=== PATIENT | female | born 1965 | race Caucasian/White ===

== ENCOUNTER 2018-04-11 14:35 | Inpatient (IN) ==
[2018-04-11] MEDS ORDERED: Haloperidol Lactate 5 MG/ML VIAL IM ONE (15:36)
--- NOTE | 2018-04-11 15:48 | Emergency Department Note ---
Disposition Clinical Impression: Elevated CK, Rett syndrome, Dehydration, Lactic acidosis Disposition: Admitted As Inpatient Condition: Fair Forms: ED Satisfaction Letter, Work/School Release Time of Disposition: 17:41 General Adult HPI - General Chief complaint: ED General Medical Stated complaint: General Time Seen by Provider: 04/11/18 15:03 Source: family Limitations: altered mental status Nursing Notes Reviewed: Yes Vital Signs Reviewed: Yes - History of Present Illness HPI Narrative: Patient presents to the ED with multiple complaints. 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 She had a recent dental surgery and "has not been the same since". Family states that she normally paces around . However, she has been doing this more than usual. She has not been sleeping well, averaging about 3 hours a night. Family states that they have to stay up with her because she is unable to take care of herself on her own. She is nonverbal at baseline. Does not appear to be confused. They deny any fever. She has been eating normally. She was constipated over the last week, but they gave her some medication yesterday and she had a large bowel movement this morning. No chest pain or shortness of breath. She does not exhibit any signs of pain, so they are unable to assess if she is hurting. They do think she may have a problem with her hips because she does not want to lay down at night and does not want to get up in bed like she has previously. No known falls. No rashes. Pain Scale: 0 - Related Data Home Medications Medication Instructions Recorded Confirmed Meloxicam [Mobic] 7.5 mg PO DAILY 04/11/18 04/11/18 Allergies Allergy/AdvReac Type Severity Reaction Status Date / Time No Known Allergies Allergy Verified 04/11/18 15:35 Review of Systems: As reviewed in the HPI. All other systems reviewed are negative or normal. Past Medical History - Past Medical History Attestation: Yes The following information was validated with the patient. Source: patient Medical history: Reports: other - Social History Smoking Status: Never smoker Smokeless Tobacco Status: No Alcohol use: Reports: none Drug use: Reports: none Physical Exam CONSTITUTIONAL: [chronically ill appearing, alert and in no acute distress, pacing around the room] EYES: [EOMI, clear conjunctiva] HENT: [Normocephalic, atraumatic, moist mucus membranes, normal oropharynx] NECK: [normal inspection, no obvious swelling, flexed and side bent to the right] PULMONARY: [normal lung sounds bilaterally, normal chest rise and fall, no respiratory distress or stridor, difficult to fully assess due to pacing CARDIOVASCULAR: [regular rate, regular rhythm, normal heart sounds, no murmurs, distal extremities are warm and well perfused] GASTROINSTESTINAL: [soft, non-tender, no guarding, no rebound, normal bowel sounds] GENITOURINARY/RECTAL: [deferred] NEUROLOGIC: [Alert, oriented to baseline but is non-verbal so unable to fully asses, moves all extremities, normal gait but family states is slightly shuffling] EXTREMITIES: [Normal inspection, full ROM, no tenderness, no pedal edema] MUSCULOSKELETAL: [no gross deformities, atraumatic] SKIN: [No cyanosis, no diaphoresis, normal color, warm, no rash] PSYCHIATRIC: [normal mood and affect] - General Limitations: altered mental status Course Course Narrative: Patient has a very mild leukocytosis, but has an elevated lactic acid and e levated CK. Normal renal function. Does have some ketones in her urine. Admitted to the hospitalist service for IV fluids. Did request we add on blood cultures. However, no obvious source of infection has been found. Family is agreeable to plan Vital Signs Temperature 98.9 F 04/11/18 14:52 Respiratory Rate 20 04/11/18 14:52 Blood Pressure 139/78 04/11/18 14:52 Temperature 98.9 F 04/11/18 15:23 Pulse Rate 0 04/11/18 15:23 Respiratory Rate 20 04/11/18 15:23 Blood Pressure 139/78 04/11/18 15:23 O2 Sat by Pulse Oximetry 0 04/11/18 15:23 Oxygen Delivery Oxygen Delivery Room Air Medical Decision Making - Medical Records Medical records reviewed: Yes I reviewed the patient's medical records. - Lab Data Lab results reviewed: Yes I reviewed the patient's lab results. Result diagrams: 04/11/18 16:39 04/11/18 16:39 Lab Results 04/11/18 04/11/18 04/11/18 Range/Units 16:39 16:39 16:46 WBC 12.1 H (4.3-11.1) K/mcL RBC 4.65 (3.82-4.97) M/mcL Hgb 14.0 (11.5-15.4) g/dL Hct 43.9 (35.3-44.9) % MCV 94.4 (83.0-100.0) fL MCH 30.1 (28.0-33.3) pg MCHC 31.9 (31.6-35.5) g/dL RDW 14.2 (11.5-14.5) % Plt Count 263 (140-400) K/mcL MPV 9.8 (9.4-12.4) fL Immature Gran % 0.6 (0-4) % Seg Neutrophils % 77.1 % Lymphocytes % 12.5 % Monocytes % 8.0 % Eosinophils % 1.2 % Basophils % 0.6 % Neutrophils # 9.3 H (1.6-8.9) K/mcL Lymphocytes # 1.5 (0.6-4.6) K/mcL Monocytes # 1.0 (0.0-1.3) K/mcL Eosinophils # 0.2 (0.0-0.6) K/mcL Basophils # 0.1 (0.0-0.2) K/mcL Sodium 141 (136-145) mEq/L Potassium 3.8 (3.5-5.1) mEq/L Chloride 104 (98-107) mEq/L Carbon Dioxide 25 (23-29) mEq/L BUN 29 H (6-20) mg/dL Creatinine 0.81 (0.60-1.20) mg/dL Est GFR ( Amer) > 60 (> 60) Est GFR (Non-Af Amer) > 60 (> 60) BUN/Creatinine Ratio 36 H (6-26) Glucose 110 H (70-105) mg/dL Calculated Osmolality 298 (280-300) Lactic Acid 3.2 H (0.5-2.2) mmol/L Calcium 9.4 (8.6-10.3) mg/dL Total Bilirubin 0.7 (0.3-1.0) mg/dL AST 48 H (13-39) Units/L ALT 32 (7-52) Units/L Alkaline Phosphatase 142 H (34-104) Units/L Creatine Kinase 754 H (30-223) Units/L Serum Total Protein 7.7 (6.4-8.9) g/dL Albumin 4.3 (3.5-5.7) g/dL Globulin 3.4 (2.4-3.5) g/dL Albumin/Globulin Ratio 1.3 (1.1-2.2) Urine Color (Yellow) Urine Clarity (Clear) Urine pH (5.0-8.0) pH Units Ur Specific [place] (1.010-1.025) Urine Protein (Neg-Trace) mg/dL Urine Glucose (UA) (Normal) mg/dL Urine Ketones (Negative) mg/dL Urine Blood (Negative) Urine Nitrite (Negative) Urine Bilirubin (Negative) Urine Urobilinogen (Normal) mg/dL Ur Leukocyte Esterase (Negative) Urine Microscopic RBC (0-3) per hpf Urine Microscopic WBC (0-3) per hpf Ur Squamous Epith Cells (None-Few) per lpf Urine Bacteria (None-Few) per hpf Hyaline Casts (None-Few) per lpf Ur Culture Indicated? (NO) 04/11/18 Range/Units 16:51 WBC (4.3-11.1) K/mcL RBC (3.82-4.97) M/mcL Hgb (11.5-15.4) g/dL Hct (35.3-44.9) % MCV (83.0-100.0) fL MCH (28.0-33.3) pg MCHC (31.6-35.5) g/dL RDW (11.5-14.5) % Plt Count (140-400) K/mcL MPV (9.4-12.4) fL Immature Gran % (0-4) % Seg Neutrophils % % Lymphocytes % % Monocytes % % Eosinophils % % Basophils % % Neutrophils # (1.6-8.9) K/mcL Lymphocytes # (0.6-4.6) K/mcL Monocytes # (0.0-1.3) K/mcL Eosinophils # (0.0-0.6) K/mcL Basophils # (0.0-0.2) K/mcL Sodium (136-145) mEq/L Potassium (3.5-5.1) mEq/L Chloride (98-107) mEq/L Carbon Dioxide (23-29) mEq/L BUN (6-20) mg/dL Creatinine (0.60-1.20) mg/dL Est GFR ( Amer) (> 60) Est GFR (Non-Af Amer) (> 60) BUN/Creatinine Ratio (6-26) Glucose (70-105) mg/dL Calculated Osmolality (280-300) Lactic Acid (0.5-2.2) mmol/L Calcium (8.6-10.3) mg/dL Total Bilirubin (0.3-1.0) mg/dL AST (13-39) Units/L ALT (7-52) Units/L Alkaline Phosphatase (34-104) Units/L Creatine Kinase (30-223) Units/L Serum Total Protein (6.4-8.9) g/dL Albumin (3.5-5.7) g/dL Globulin (2.4-3.5) g/dL Albumin/Globulin Ratio (1.1-2.2) Urine Color Yellow (Yellow) Urine Clarity Cloudy A (Clear) Urine pH 5.0 (5.0-8.0) pH Units Ur Specific [place] 1.023 (1.010-1.025) Urine Protein Negative (Neg-Trace) mg/dL Urine Glucose (UA) Normal (Normal) mg/dL Urine Ketones 15 H (Negative) mg/dL Urine Blood Small H (Negative) Urine Nitrite Negative (Negative) Urine Bilirubin Small H (Negative) Urine Urobilinogen Normal (Normal) mg/dL Ur Leukocyte Esterase Negative (Negative) Urine Microscopic RBC 3-5 H (0-3) per hpf Urine Microscopic WBC 0-3 (0-3) per hpf Ur Squamous Epith Cells Many H (None-Few) per lpf Urine Bacteria None Seen (None-Few) per hpf Hyaline Casts Few (None-Few) per lpf Ur Culture Indicated? NO (NO) - Radiology Data Radiology results reviewed: Yes I reviewed the patient's radiology results. - EKG Data EKG #1 EKG attestation: Yes I reviewed and interpreted this EKG. EKG results narrative: EKG is severely limited by motion degradation, showing a sinus tach at 125, normal axis, no acute diagnostic ischemic changes. Attestation Statement - Attestation Attestation: I, Ulysses Donaldson, examined this patient and my medical decision-making was reviewed with the [employer]ATE OPERATOR/PA/Advanced Practice Nurse/Resident Physician. I agree with the documented findings, disposition and treatment plan as described except to the extent set forth below. 52-year-old female presents emergency Department for evaluation of altered mental status. Patient has a history of Rett syndrome and is unable to provide a history regarding her case and presentation. Family are present in the emergency department and state that she is at baseline nonverbal and often paces around the room however it has significantly increased and she is unable to sleep at home. Patient had a dental procedure which required intubation and sedation in order to complete the dental care. Patient's symptoms have been present since that time. They deny history of vomiting, diarrhea, rash. We will evaluate for possible infectious etiology of the patient's confusion. Patient will require some sedation in order to obtain labs and urinalysis as she is persistently pacing around the room. Patient was given Haldol and Benadryl emergency department in order to complete the evaluation. Family was comfortable with this plan. Laboratory evaluation pending at this time.
[2018-04-11 16:54] LABS: Basophils # 0.1 K/mcL (0.0-0.2); Basophils % 0.6 %; Eosinophils # 0.2 K/mcL (0.0-0.6); Eosinophils % 1.2 %; Hematocrit 43.9 % (35.3-44.9); Immature Granulocytes % 0.6 % (0-4); Lymphocytes # 1.5 K/mcL (0.6-4.6); Lymphocytes % 12.5 %; Mean Corpuscular HGB Conc 31.9 g/dL (31.6-35.5); Mean Corpuscular Hemoglobin 30.1 pg (28.0-33.3); Mean Corpuscular Volume 94.4 fL (83.0-100.0); Mean Platelet Volume 9.8 fL (9.4-12.4); Neutrophils # 9.3 K/mcL (1.6-8.9); Platelet Count 263 K/mcL (140-400); Red Blood Count 4.65 M/mcL (3.82-4.97); Red Cell Distribution Width 14.2 % (11.5-14.5); Segmented Neutrophils % 77.1 %
[2018-04-11 17:08] LABS: Bilirubin,Urine Small (Negative); Blood,Urine Small (Negative); Clarity,Urine Cloudy (Clear); Color,Urine Yellow (Yellow); Glucose,Urine (UA) Normal (Normal); Ketones,Urine 15 mg/dL (Negative); Leukocyte Esterase,Urine Negative (Negative); Nitrite,Urine Negative (Negative); Protein,Urine Negative (Neg-Trace); Specific Gravity,Urine 1.023 (1.010-1.025); Urobilinogen,Urine Normal (Normal)
[2018-04-11 17:09] LABS: Bacteria,Urine None Seen per hpf (None-Few); Hyaline Casts,Urine Few per lpf (None-Few); Squamous Epithelial Cell,Urine Many per lpf (None-Few); WBC,Urine 0-3 per hpf (0-3)
[2018-04-11 17:13] LABS: Alanine Aminotransferase 32 Units/L (7-52); Albumin 4.3 g/dL (3.5-5.7); Albumin/Globulin Ratio 1.3 (1.1-2.2); Alkaline Phosphatase 142 Units/L (34-104); Aspartate Amino Transferase 48 Units/L (13-39); BUN/Creatinine Ratio 36 (6-26); Bilirubin,Total 0.7 mg/dL (0.3-1.0); Blood Urea Nitrogen 29 mg/dL (6-20); Calcium 9.4 mg/dL (8.6-10.3); Carbon Dioxide 25 mEq/L (23-29); Chloride 104 mEq/L (98-107); Creatine Kinase 754 Units/L (30-223); Globulin 3.4 g/dL (2.4-3.5); Glucose 110 mg/dL (70-105); Osmolality,Calculated 298 (280-300); Potassium 3.8 mEq/L (3.5-5.1); Sodium 141 mEq/L (136-145); Total Protein 7.7 g/dL (6.4-8.9); eGFR For Non-African Americans > 60 (> 60)
--- NOTE | 2018-04-11 18:28 | Internal Med History&Physical ---
<Ava Hernandez - Last Filed: 04/11/18 18:59> Date of Encounter: 04/11/18 Internal Medicine - H&P: [facility] History of present illness: Ms. Kim is a 52 year old female Internal Medicine - H&P: Meds Meloxicam [Mobic] 7.5 mg PO DAILY 04/11/18 [History] Allergy/AdvReac Type Severity Reaction Status Date / Time No Known Allergies Allergy Verified 04/11/18 15:35 All Systems PM: A 10-system review of systems was performed and is negative for pertinent findings except as documented above in the HPI. - Constitutional Vitals: Temp Pulse Resp BP Pulse Ox 98.9 F 94 20 133/86 99 04/11/18 15:23 04/11/18 18:29 04/11/18 18:29 04/11/18 18:29 04/11/18 18:29 Internal Med - H&P Results - Labs CBC & Chem 7: 04/11/18 16:39 04/11/18 16:39 Labs: Short CBC 04/11/18 Range/Units 16:39 WBC 12.1 H (4.3-11.1) K/mcL Hgb 14.0 (11.5-15.4) g/dL Hct 43.9 (35.3-44.9) % Plt Count 263 (140-400) K/mcL Neutrophils # 9.3 H (1.6-8.9) K/mcL BMP 04/11/18 16:39 Sodium 141 Potassium 3.8 Chloride 104 Carbon Dioxide 25 BUN 29 H Creatinine 0.81 Glucose 110 H Calcium 9.4 Liver Function 04/11/18 Range/Units 16:39 Total Bilirubin 0.7 (0.3-1.0) mg/dL AST 48 H (13-39) Units/L ALT 32 (7-52) Units/L Alkaline Phosphatase 142 H (34-104) Units/L Albumin 4.3 (3.5-5.7) g/dL Urine 04/11/18 Range/Units 16:51 Urine Color Yellow (Yellow) Urine Clarity Cloudy A (Clear) Urine pH 5.0 (5.0-8.0) pH Units Ur Specific [place] 1.023 (1.010-1.025) Urine Protein Negative (Neg-Trace) mg/dL Urine Glucose (UA) Normal (Normal) mg/dL - Impressions ITS Impressions Chest X-Ray 04/11/18 15:24 IMPRESSION: No acute process. D/ / 04/11/2018 16:42:19 Jack Nix MD / guerartdivine Interpreting Provider: Jack Nix MD Pelvis X-Ray 04/11/18 15:24 IMPRESSION: No acute osseous abnormality. D/ / Jack Nix MD / Jack Nix MD Interpreting Provider: Jack Nix MD - Time Spent With Patient Total time spent is greater than 50% in coordination of care (as documented) at patient's floor/unit and/or counseling patient: - Attending Attestation I examined this patient and my medical decision-making was reviewed with the Resident Physician Dr Bright. I agree with the documented findings, disposition and treatment plan as described except to the extent set forth below. Ms Kim has in observation for suspected rhabdomyolysis that is the result of increased activity 2/2 agitation after outpt procedure which is a complication she ahs had in past with her Rett Syndrome She was sedated with haldol in ED and family is at bedside. Only complaint is inreased agitation, pacing constatntly in recent days, not sleeping since dental work with sedation at [facility]. Has done this in past with procedures. Started to notice she was walking like her legs hurt so brought her in. she is non verbal at baseline and otherwise has been in her usual health no hpi or ros can be obtained from patient gen- asleep, appears stated age eyes- pupils equal round cv- reg rate and rhythm, normal s1,s2, no murmurs appreciated, no le edema lungs- ctabl, no wheezing, rhonchi or crackles abd- soft, no apparent tenderness, non distended, + bs neuro- asleep, finally calm, family did not want us to wake elevated CK, suspect rhabdo given recent increased activity- IVFs, serial cks, check mag given leg pain leukocytosis- no infectious source identified at this time, checking bl cxs given her recent dental work, trend wbc, watch for fever rett syndrome- follows with pcp, non verbal at baseline, only home med is meloxicam further diagnoses and plan as documented by resident <Kandis Bright - Last Filed: 04/11/18 19:49> Date of Encounter: 04/11/18 Time of Encounter: 19:19 Internal Medicine - H&P: HPI Chief complaint: dehydration Admitted From: Emergency Dept Plans for Post Hospital Care: Home History of present illness: Ms. Kim is a 52 year old female with past medical history of Rett syndrome, who presented to the emergency department on 04/11/2018 with a chief complaint of "not acting right". Patient's history is obtained per her mother and father, at baseline patient is nonverbal, able to ambulate, however has bilateral weakness in the upper extremities. Per family in the room as well as her feather washer, over the past 2 weeks, patient has been very anxious and agitated, notes that she paces throughout the room, walking in circles for hours at a time, and this is been ongoing for the past week and a half, progressively getting worse, which is very unusual for her. They also note that she is been unable to sleep, possibly getting 3 hours of sleep at a time. They state that this began approximately 2 weeks ago following a dental procedure where she was nasally intubated. They stated that the procedure well, no cough medications are noted. They note that the patient appears more confused, seems to grimace more when going from a standing position and getting onto her bed, which is unusual for her. The patient is able to walk without difficulty. They state that she will point to her legs and hips as though that is where her pain is located. They also note that over the past week, they had to give her Colace as she was not having a bowel movement, did have a large bowel movement this morning. Also states that on Saturday, patient was seen by primary care provider, had slight swelling in the lower extremities, primary care provider placed the p atient on Lasix, and has been taking this daily for the past 5 days, they do note that she has had increased urine output. They deny recent history of fevers, chills, abdominal pain, change in appetite, hematuria, pain with urination, cough, difficulty swallowing or painful swallowing. They deny any recent infections, illness or antibiotic use. Patient does have history of falls in the past, has not had a fall for months per family in the room. No new rashes or bruises that the family is aware of. Patient is primarily cared for by her parents and caregiver. They state that there is always someone who is with her 24 hours a day. They state that she does not take any medications at home, no medical history other than Rett syndrome. They state that she does not follow with these particular specialist, they state that she does go to her primary care provider as needed. On arrival to the emergency department, patient was normotensive, with regular heart rate, and afebrile. Patient's white blood cell count was 12.1, serum creatinine is normal at 0.81, sodium and potassium are within normal limits, creatinine kinase is elevated at 754, lactic acid is elevated at 3.2, urinalysis does show small amount of blood with 3-5 RBCs, no signs of infection. Chest x- ray and pelvic x-ray are negative for acute changes, no signs of cardiopulmonary changes or infection. Patient was started on fluids, and as patient was agitated and combative with staff, Haldol and Benadryl were given to the patient. On admission, patient is lying in bed calmly, family is at bedside. They state that in the past, multiple years ago, she had gallbladder surgery and had a very similar reaction following anesthesia. They state that at that point in time she would walk around for multiple days at a time, however was not this severe. They do state that it took multiple weeks for her to stop pacing in the room. They did not seek medical attention at that time. Past Med Surg Social Fam HX - Past Medical History Source: obtained from family Medical history: other (Rett Syndrome) Additional medical history: Rhetts syndrome, scolliosis - Past Surgical History Additional surgical history: Back sx - Social History Smoking Status: Never smoker Smokeless Tobacco Status: No Alcohol use: none Drug use: none ROS unobtainable: due to mental status All Systems PM: A 10-system review of systems was performed and is negative for pertinent findings except as documented above in the HPI. - Constitutional Vitals: Temp Pulse Resp BP Pulse Ox 98.9 F 99 20 136/81 99 04/11/18 15:23 04/11/18 17:51 04/11/18 17:51 04/11/18 17:51 04/11/18 17:51 General appearance: Present: A&O X 0, no acute distress (Patient currently laying in bed, will make multiple sounds, but with no purpose or intention) Exam: . - Head Head exam: Present: atraumatic, normal inspection, normocephalic - Eye Eye exam: Present: EOMI, normal appearance, PERRL - ENT ENT exam: Present: normal exam (Mucous membranes slightly dry) - Respiratory Respiratory exam: Present: CTAB. Absent: respiratory distress, rhonchi, stridor, wheezes - Cardiovascular Cardiovascular exam: Present: RRR. Absent: gallop, rubs - GI/Abdominal GI/Abdominal exam: Absent: guarding, rebound, tenderness, no peritoneal signs - Extremities Exam Extremities exam: Absent: calf tenderness, normal inspection, pedal edema, tenderness - Neurological Exam Neurological exam: Present: no focal deficits (Patient had been sedated prior to examination, however patient did move her upper and lower extremities while on the bed, no gross deficits able to be appreciated, as patient is uncooperative with exam currently) - Skin Skin exam: Absent: erythema, pallor, rash Internal Med - H&P Results - Labs CBC & Chem 7: 04/11/18 16:39 04/11/18 16:39 Labs: Short CBC 04/11/18 Range/Units 16:39 WBC 12.1 H (4.3-11.1) K/mcL Hgb 14.0 (11.5-15.4) g/dL Hct 43.9 (35.3-44.9) % Plt Count 263 (140-400) K/mcL Neutrophils # 9.3 H (1.6-8.9) K/mcL BMP 04/11/18 16:39 Sodium 141 Potassium 3.8 Chloride 104 Carbon Dioxide 25 BUN 29 H Creatinine 0.81 Glucose 110 H Calcium 9.4 Liver Function 04/11/18 Range/Units 16:39 Total Bilirubin 0.7 (0.3-1.0) mg/dL AST 48 H (13-39) Units/L ALT 32 (7-52) Units/L Alkaline Phosphatase 142 H (34-104) Units/L Albumin 4.3 (3.5-5.7) g/dL Urine 04/11/18 Range/Units 16:51 Urine Color Yellow (Yellow) Urine Clarity Cloudy A (Clear) Urine pH 5.0 (5.0-8.0) pH Units Ur Specific [place] 1.023 (1.010-1.025) Urine Protein Negative (Neg-Trace) mg/dL Urine Glucose (UA) Normal (Normal) mg/dL - Impressions ITS Impressions Chest X-Ray 04/11/18 15:24 IMPRESSION: No acute process. D/ / 04/11/2018 16:42:19 Jack Nix MD / isabelle Interpreting Provider: Jack Nix MD Pelvis X-Ray 04/11/18 15:24 IMPRESSION: No acute osseous abnormality. D/ / Jack Nix MD / Jack Nix MD Interpreting Provider: Jack Nix MD - Assessment and plan (1) Rhabdomyolysis Current Visit: Yes Status: Acute Assessment and plan: Patient presented to the emergency room with history of Rett syndrome, states that her family who are giving history, patient has been pacing for the past 2 weeks, progressively worsening over the past few days. On arrival to the emergency department, patient was normotensive, afebrile with white count of 12.1 Patient found to have elevated CK of 754, serum creatinine is 0.81, urinalysis shows small blood, with 3-5 RBCs, lactic acid elevated at 3.2 Given patient's history recently, with increased activity and constant movement, suspect rhabdomyolysis is secondary to this activity. Urinalysis does not suggest urinary tract infection, chest x-ray is negative for acute cardiopulmonary process, pelvic x-rays negative and appears normal No recent fevers, cough or chills per patient. No recent antibiotic use, falls or trauma Plan We will give her 1 L bolus, and then continue at a rate of 100 mL's per hour continuous We will get a repeat CK, magnesium, lactic acid at 2100 We will reassess CMP and CBC in the morning We will continue to monitor for fevers We will monitor as blood cultures were drawn, continue to follow We will continue to follow serum creatinine Qualifiers: Rhabdomyolysis type: non-traumatic Qualified Code(s): M62.82 - Rhabdo myolysis (2) 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 Assessment and plan: Patient with history of Rett syndrome, appears stable and unchanged per family in the room Primary caregivers are currently her parents as well as a family friend, who provides home health at times Patient on arrival to the emergency department was combative and agitated, was sedated with Haldol and Benadryl On my examination, patient was calm, laying in bed and not combative Plan Sitter was placed at patient's bedside Per family, expectation is that patient could possibly become combative or agitated again when patient wakes up and is no longer sedated Would recommend that if the patient does become combative to try to apply hand mitt so patient is unable to remove IVs, if patient continues to progress, would advocate that patient be given Ativan 1 mg and reassessed (3) Lactic acidosis Current Visit: Yes Status: Acute Assessment and plan: Lactic acid is elevated at 3.2 Plan Continue as stated above We will continue to trend with repeat at 2100 (4) DVT prophylaxis Current Visit: Yes Status: Acute Assessment and plan: Subcutaneous heparin (5) Leucocytosis Current Visit: Yes Status: Acute Assessment and plan: On arrival to the emergency department patient's to BBC was elevated at 12.1 No infectious etiology at this point in time, urinalysis shows no signs of infections, chest x-ray is negative for acute cardiac no pulmonary disease No recent fevers or illness per family in the room Plan continue to monitor blood cultures, have been drawn given recent dental procedure Continue to watch, patient has febrile episode, we will need to reassess Qualifiers: Leukocytosis type: unspecified Qualified Code(s): D72.829 - Elevated white blood cell count, unspecified - Time Spent With Patient Total time spent is greater than 50% in coordination of care (as documented) at patient's floor/unit and/or counseling patient: 25 - 35 minutes
[2018-04-11] MEDS ORDERED: Naloxone 0.4 MG/ML INJ IVP PRN (18:48)
[2018-04-11] MEDS ORDERED: Acetaminophen 325 MG TABLET PO PRN (18:48)
[2018-04-11] MEDS: 0.9 % Sodium Chloride 1,000 ML IVC SCH ×2 (19:37→21:52)
[2018-04-11 21:16] LABS: Magnesium 2.2 mg/dL (1.6-2.6)
[2018-04-11] MEDS: *HR* Heparin 5,000 UNIT/ML VIAL SQ SCH (21:52)
[2018-04-12 04:20] LABS: Basophils % 0.4 %; Eosinophils # 0.1 K/mcL (0.0-0.6); Eosinophils % 1.3 %; Hematocrit 39.4 % (35.3-44.9); Hemoglobin 13.1 g/dL (11.5-15.4); Immature Granulocytes % 0.4 % (0-4); Lymphocytes # 1.1 K/mcL (0.6-4.6); Lymphocytes % 11.6 %; Mean Corpuscular HGB Conc 33.2 g/dL (31.6-35.5); Mean Corpuscular Hemoglobin 30.6 pg (28.0-33.3); Mean Corpuscular Volume 92.1 fL (83.0-100.0); Mean Platelet Volume 9.6 fL (9.4-12.4); Monocytes # 0.7 K/mcL (0.0-1.3); Monocytes % 7.3 %; Neutrophils # 7.2 K/mcL (1.6-8.9); Platelet Count 228 K/mcL (140-400); Red Blood Count 4.28 M/mcL (3.82-4.97); Red Cell Distribution Width 14.4 % (11.5-14.5)
[2018-04-12 04:40] LABS: Alanine Aminotransferase 25 Units/L (7-52); Albumin 3.8 g/dL (3.5-5.7); Albumin/Globulin Ratio 1.4 (1.1-2.2); Alkaline Phosphatase 126 Units/L (34-104); Aspartate Amino Transferase 39 Units/L (13-39); BUN/Creatinine Ratio 46 (6-26); Bilirubin,Total 0.7 mg/dL (0.3-1.0); Blood Urea Nitrogen 25 mg/dL (6-20); Calcium 8.7 mg/dL (8.6-10.3); Carbon Dioxide 20 mEq/L (23-29); Chloride 107 mEq/L (98-107); Globulin 2.8 g/dL (2.4-3.5); Glucose 98 mg/dL (70-105); Osmolality,Calculated 294 (280-300); Potassium 3.4 mEq/L (3.5-5.1); Sodium 140 mEq/L (136-145); Total Protein 6.6 g/dL (6.4-8.9); eGFR For Non-African Americans > 60 (> 60)
[2018-04-12] MEDS: 0.9 % Sodium Chloride 1,000 ML IVC SCH ×3 (06:25→21:55)
[2018-04-12] MEDS: *HR* Heparin 5,000 UNIT/ML VIAL SQ SCH ×3 (06:26→21:52)
[2018-04-12] MEDS ORDERED: Potassium Chloride Elixir 20 MEQ/15 ML UDC PO ONE (11:34)
[2018-04-12] MEDS ORDERED: 0.9 % Sodium Chloride 1,000 ML IVC ONE ×2 (12:17→18:35)
[2018-04-12] MEDS ORDERED: 0.9 % Sodium Chloride 1,000 ML IVC SCH (12:18)
--- NOTE | 2018-04-12 13:30 | Internal Med Progress Note ---
<Priyanka Mandujano - Last Filed: 04/12/18 13:27> Hospitalist Progress Note - Encounter Date of Encounter: 04/12/18 Time of Encounter: 13:27 - Subjective Interval History: 52-year-old female evaluated at bedside. She was laying at the corner of the bed in the position. She is nonverbal, does not answer questions or follow commands. Patient's parents present at bedside. - Exam Vitals: Temp Pulse Resp BP Pulse Ox 98.5 F 103 20 133/75 96 04/12/18 04:15 04/12/18 08:12 04/12/18 08:12 04/12/18 08:12 04/12/18 08:12 Exam: Gen.: patient laying in the bed in the position. She does not follow commands or respond to questions. Mouth, very poor dentition present. Patient did not allow me to open or look inside the mouth. CV: regular rate and rhythm, normal S1, S2, no murmurs, rubs, gallops appreciated. No pedal edema present. Respiratory: clear to auscultation bilaterally, no wheezes, rales, or rhonchi noted. Abdomen: soft, nondistended, nontender, bowel sounds present. 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 Upon arrival, CPK was elevated at 754. Chest x-ray no acute process pelvis x-ray showed no osseous abnormality plan: will give another 1 L bolus today. 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 Patient lives at home with her parents, who are her primary drafter electromechanical. Plan: patient appears very somnolent today. Suspect likely secondary to sedation with Haldol and Benadryl. continue sitter Q2 hour turning (3) Lactic acidosis Current Visit: Yes Status: Resolved Assessment and Plan: Resolved (4) DVT prophylaxis Current Visit: Yes Status: Acute Assessment and Plan: Heparin SQ (5) Leucocytosis Current Visit: Yes Status: Resolved Assessment and Plan: Currently resolved. Continue to monitor. - Time Spent with Patient Total time spent is greater than 50% in coordination of care (as documented) at patient's floor/unit and/or counseling patient: Internal Medicine: Result - Labs CBC & Chem 7: 04/12/18 04:05 04/12/18 04:05 Labs: Short CBC 04/11/18 04/12/18 Range/Units 16:39 04:05 WBC 12.1 H 9.1 (4.3-11.1) K/mcL Hgb 14.0 13.1 (11.5-15.4) g/dL Hct 43.9 39.4 (35.3-44.9) % Plt Count 263 228 (140-400) K/mcL Neutrophils # 9.3 H 7.2 (1.6-8.9) K/mcL BMP 04/11/18 04/12/18 16:39 04:05 Sodium 141 140 Potassium 3.8 3.4 L Chloride 104 107 Carbon Dioxide 25 20 L BUN 29 H 25 H Creatinine 0.81 0.54 L Glucose 110 H 98 Calcium 9.4 8.7 Liver Function 04/11/18 04/12/18 Range/Units 16:39 04:05 Total Bilirubin 0.7 0.7 (0.3-1.0) mg/dL AST 48 H 39 (13-39) Units/L ALT 32 25 (7-52) Units/L Alkaline Phosphatase 142 H 126 H (34-104) Units/L Albumin 4.3 3.8 (3.5-5.7) g/dL Urine 04/11/18 Range/Units 16:51 Urine Color Yellow (Yellow) Urine Clarity Cloudy A (Clear) Urine pH 5.0 (5.0-8.0) pH Units Ur Specific [place] 1.023 (1.010-1.025) Urine Protein Negative (Neg-Trace) mg/dL Urine Glucose (UA) Normal (Normal) mg/dL - Impressions Impressions Chest X-Ray 04/11/18 15:24 IMPRESSION: No acute process. D/ / 04/11/2018 16:42:19 Jack Nix MD / guerartdivine Interpreting Provider: Jack Nix MD Pelvis X-Ray 04/11/18 15:24 IMPRESSION: No acute osseous abnormality. 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 (2) Lactic acidosis Current Visit: Yes Status: Resolved (3) Rhabdomyolysis Current Visit: Yes Status: Acute (4) DVT prophylaxis Current Visit: Yes Status: Acute (5) Leucocytosis Current Visit: Yes Status: Resolved - Time Spent with Patient Total time spent is greater than 50% in coordination of care (as documented) at patient's floor/unit and/or counseling patient: Internal Medicine: Result - Labs CBC & Chem 7: 04/12/18 04:05 04/12/18 04:05 Labs: Short CBC 04/11/18 04/12/18 Range/Units 16:39 04:05 WBC 12.1 H 9.1 (4.3-11.1) K/mcL Hgb 14.0 13.1 (11.5-15.4) g/dL Hct 43.9 39.4 (35.3-44.9) % Plt Count 263 228 (140-400) K/mcL Neutrophils # 9.3 H 7.2 (1.6-8.9) K/mcL BMP 04/11/18 04/12/18 16:39 04:05 Sodium 141 140 Potassium 3.8 3.4 L Chloride 104 107 Carbon Dioxide 25 20 L BUN 29 H 25 H Creatinine 0.81 0.54 L Glucose 110 H 98 Calcium 9.4 8.7 Liver Function 04/11/18 04/12/18 Range/Units 16:39 04:05 Total Bilirubin 0.7 0.7 (0.3-1.0) mg/dL AST 48 H 39 (13-39) Units/L ALT 32 25 (7-52) Units/L Alkaline Phosphatase 142 H 126 H (34-104) Units/L Albumin 4.3 3.8 (3.5-5.7) g/dL Urine 04/11/18 Range/Units 16:51 Urine Color Yellow (Yellow) Urine Clarity Cloudy A (Clear) Urine pH 5.0 (5.0-8.0) pH Units Ur Specific [place] 1.023 (1.010-1.025) Urine Protein Negative (Neg-Trace) mg/dL Urine Glucose (UA) Normal (Normal) mg/dL - Impressions Impressions Chest X-Ray 04/11/18 15:24 IMPRESSION: No acute process. D/ / 04/11/2018 16:42:19 Jack Nix MD / isabelle Interpreting Provider: Jack Nix MD Pelvis X-Ray 04/11/18 15:24 IMPRESSION: No acute osseous abnormality. D/ / Jack Nix MD / Jack Nix MD Interpreting Provider: Jack Nix MD - Attending Attestation I examined this patient and my medical decision-making was reviewed with the Resident Physician Dr Mandujano. I agree with the documented findings, disposition and treatment plan as described except to the extent set forth below. Ms Kim is in observation for rhabdomyolysis that is the result of increased activity (constant pacing and refusal to sit or lie down) in recent da ys. This agitation is after outpt procedure for which she received sedation. She has Rett syndrome and this type of episodes is her typical complication she has had in past with her Rett Syndrome as noted by her parents. She was sedated with haldol and Benadryl in ED and has been resting since that time with present at bedside. sitter at bedside.she is non verbal at baseline and all hpi and ros is obtained from parents. Laid in bed all night, did sleep, very tired since ED meds. comfortable appearing. mawake this morning and beginning to be restless in bed but redirectable. gen- asleep, awakes to conversation, appears stated age eyes- pupils equal round cv- reg rate and rhythm, normal s1,s2, no murmurs appreciated, no le edema lungs- ctabl, no wheezing, rhonchi or crackles, normal resp effort on room air neuro- awake, calm, non verbal at baseline, does not follow commands, cn appear grossly intact elevated CK/rhabdo suspect 2/2 recent increased activity- creat remains normal, increase ivfs, serial cks leukocytosis resolved without abx, suspect reactive- no infectious source identified at this time, bl cxs checked given her recent dental work are ngtd hypokalemia, K+ 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- follows with pcp, non verbal at baseline, only home med is meloxicam further diagnoses and plan as documented by resident after discussion with parents, she would benefit from as short a hospital stay as possible given her neurodevelopmental impairments. Once CK improves to near normal and she is taking in oral fluids reliably will consider dc to home at that time <Priyanka Mandujano - Last Filed: 04/12/18 13:27> (1) Rhabdomyolysis Qualifiers: Rhabdomyolysis type: non-traumatic Qualified Code(s): M62.82 - Rhabdomyolysis (5) Leucocytosis Qualifiers: Leukocytosis type: unspecified Qualified Code(s): D72.829 - Elevated white blood cell count, unspecified <Ava Hernandez - Last Filed: 04/12/18 14:20> (3) Rhabdomyolysis Qualifiers: Rhabdomyolysis type: non-traumatic Qualified Code(s): M62.82 - Rhabdomyolysis (5) Leucocytosis Qualifiers: Leukocytosis type: unspecified Qualified Code(s): D72.829 - Elevated white blood cell count, unspecified
[2018-04-12 19:00] LABS: BUN/Creatinine Ratio 26 (6-26); Blood Urea Nitrogen 16 mg/dL (6-20); Calcium 8.3 mg/dL (8.6-10.3); Carbon Dioxide 21 mEq/L (23-29); Chloride 113 mEq/L (98-107); Glucose 133 mg/dL (70-105); Osmolality,Calculated 295 (280-300); Potassium 3.6 mEq/L (3.5-5.1); Sodium 141 mEq/L (136-145); eGFR For Non-African Americans > 60 (> 60)
[2018-04-13 01:19] LABS: Basophils # 0.1 K/mcL (0.0-0.2); Basophils % 0.4 %; Eosinophils # 0.1 K/mcL (0.0-0.6); Eosinophils % 0.6 %; Hematocrit 41.8 % (35.3-44.9); Hemoglobin 13.5 g/dL (11.5-15.4); Immature Granulocytes % 0.5 % (0-4); Lymphocytes # 0.9 K/mcL (0.6-4.6); Lymphocytes % 7.8 %; Mean Corpuscular HGB Conc 32.3 g/dL (31.6-35.5); Mean Corpuscular Hemoglobin 30.1 pg (28.0-33.3); Mean Corpuscular Volume 93.1 fL (83.0-100.0); Monocytes # 0.7 K/mcL (0.0-1.3); Monocytes % 5.7 %; Neutrophils # 10.2 K/mcL (1.6-8.9); Platelet Count 220 K/mcL (140-400); Red Blood Count 4.49 M/mcL (3.82-4.97); Red Cell Distribution Width 14.3 % (11.5-14.5)
[2018-04-13 01:28] LABS: BUN/Creatinine Ratio 22 (6-26); Blood Urea Nitrogen 10 mg/dL (6-20); Calcium 8.3 mg/dL (8.6-10.3); Carbon Dioxide 21 mEq/L (23-29); Chloride 109 mEq/L (98-107); Glucose 113 mg/dL (70-105); Osmolality,Calculated 286 (280-300); Potassium 3.4 mEq/L (3.5-5.1); Sodium 138 mEq/L (136-145); eGFR For Non-African Americans > 60 (> 60)
[2018-04-13] MEDS: 0.9 % Sodium Chloride 1,000 ML IVC SCH ×5 (04:23→14:41)
--- NOTE | 2018-04-13 05:10 | Event Note ---
Date of Encounter: 04/13/18 Time of Encounter: 02:14 Notified of troponin increase by nurse from 0.05 to 0.19, in light of suspected rhabdo with CK of 5243 from 4436. Due to patient being unable to communicate any chest pain EKG obtained, appeared to have artifact, repeat EKG ordered, still appeared to have artifact but rhythm strip that appears sinus rhythm. Patient appears to be resting comfortably. Vitals stable. Due to continued increase CK, will order 2 liter bolus, and then continue ordered IVF. Repeat labs ordered for this a.m. Discussed with Dr Bobby.
[2018-04-13] MEDS: *HR* Heparin 5,000 UNIT/ML VIAL SQ SCH ×2 (06:01→17:41)
[2018-04-13] MEDS ORDERED: Aspirin 325 MG TABLET PO ONE (08:00)
[2018-04-13] MEDS ORDERED: Potassium Chloride Elixir 20 MEQ/15 ML UDC PO ONE (08:02)
[2018-04-13] MEDS ORDERED: *HR* Heparin 5,000 UNIT/ML VIAL IVP ONE (08:03)
[2018-04-13] MEDS ORDERED: *HR* Heparin 5,000 UNIT/ML VIAL IVP PRN ×2 (08:03)
[2018-04-13] MEDS ORDERED: 0.9 % Sodium Chloride 1,000 ML IVC SCH (08:05)
[2018-04-13] MEDS ORDERED: Heparin 25,000 UNIT/500 ML D5W 25,000 UNIT/500 ML BAG IVC SCH (08:15)
[2018-04-13 08:24] LABS: Chol/HDL Ratio 3.5 (0-4.9)
--- NOTE | 2018-04-13 08:55 | Internal Med Progress Note ---
<Priyanka Mandujano - Last Filed: 04/13/18 12:10> Hospitalist Progress Note - Encounter Date of Encounter: 04/13/18 Time of Encounter: 09:21 - Subjective Interval History: 52-year-old female evaluated at bedside. She was laying at the corner of the bed in the position. She is nonverbal, does not answer questions or follow commands. Patient's parents present at bedside. - Exam Vitals: Temp Pulse Resp BP Pulse Ox 98.2 F 94 18 153/97 96 04/13/18 07:42 04/13/18 04:32 04/13/18 04:32 04/13/18 07:42 04/13/18 04:32 Exam: Gen.: patient laying in the bed comfortably. She does not follow commands or respond to questions. Mouth, very poor dentition present. CV: regular rate and rhythm, normal S1, S2, no murmurs, rubs, gallops appre ciated. No pedal edema present. Respiratory: clear to auscultation bilaterally, no wheezes, rales, or rhonchi noted. Abdomen: soft, nondistended, nontender, bowel sounds present. 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 Upon arrival, CPK was elevated at 754. repeat CPK levels show peak at 5243, currently trending down. Chest x-ray no acute process pelvis x-ray showed no osseous abnormality plan: patient received multiple fluid bolluses yesterday. 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 Patient lives at home with her parents, who are her primary fast food delivery driver. Plan: continue sitter Q2 hour turning (3) Lactic acidosis Current Visit: Yes Status: Resolved Assessment and Plan: Resolved (4) Leucocytosis Current Visit: Yes Status: Resolved Assessment and Plan: no source of infection found at this time. Continue to monitor. (5) DVT prophylaxis Current Visit: Yes Status: Acute Assessment and Plan: Heparin SQ (6) Elevated troponin Current Visit: Yes Status: Acute Assessment and Plan: Troponins elevated .05, 0.19 likely seconary to rhabdo but must rule out cardiac causes. EKG with no ischemic changes. Plan: discussed case with credit front office developer youth accommodation support worker. he states this is likely secondary to rhabdo and does not recommend heparin gtt at this time. continue to monitor. - Time Spent with Patient Total time spent is greater than 50% in coordination of care (as documented) at patient's floor/unit and/or counseling patient: Internal Medicine: Result - Labs CBC & Chem 7: 04/13/18 09:12 04/13/18 00:49 Labs: Short CBC 04/13/18 Range/Units 00:49 WBC 12.0 H (4.3-11.1) K/mcL Hgb 13.5 (11.5-15.4) g/dL Hct 41.8 (35.3-44.9) % Plt Count 220 (140-400) K/mcL Neutrophils # 10.2 H (1.6-8.9) K/mcL BMP 04/12/18 04/13/18 18:28 00:49 Sodium 141 138 Potassium 3.6 3.4 L Chloride 113 H 109 H Carbon Dioxide 21 L 21 L BUN 16 10 Creatinine 0.61 0.46 L Glucose 133 H 113 H Calcium 8.3 L 8.3 L Cardiac Enzymes 04/12/18 04/13/18 04/13/18 Range/Units 18:28 00:49 06:58 Troponin I 0.05 H* 0.19 H* 0.11 H* (< 0.04) ng/mL Consult Discharge Plan - Plan Referrals: NONE,PCP [Primary Care Provider] - <Ava Hernandez - Last Filed: 04/13/18 14:38> Hospitalist Progress Note - Encounter Date of Encounter: 04/13/18 - Exam Vitals: Temp Pulse Resp BP Pulse Ox 98.2 F 94 18 153/97 96 04/13/18 07:42 04/13/18 04:32 04/13/18 04:32 04/13/18 07:42 04/13/18 04:32 - Assessment and Plan (1) 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 (2) Lactic acidosis Current Visit: Yes Status: Resolved (3) Rhabdomyolysis Current Visit: Yes Status: Acute (4) DVT prophylaxis Current Visit: Yes Status: Acute (5) Leucocytosis Current Visit: Yes Status: Resolved (6) Elevated troponin Current Visit: Yes Status: Acute - Time Spent with Patient Total time spent is greater than 50% in coordination of care (as documented) at patient's floor/unit and/or counseling patient: Internal Medicine: Result - Labs CBC & Chem 7: 04/13/18 09:12 04/13/18 00:49 Labs: Short CBC 04/13/18 04/13/18 Range/Units 00:49 09:12 WBC 12.0 H 11.3 H (4.3-11.1) K/mcL Hgb 13.5 13.5 (11.5-15.4) g/dL Hct 41.8 40.0 (35.3-44.9) % Plt Count 220 218 (140-400) K/mcL Neutrophils # 10.2 H (1.6-8.9) K/mcL BMP 04/12/18 04/13/18 18:28 00:49 Sodium 141 138 Potassium 3.6 3.4 L Chloride 113 H 109 H Carbon Dioxide 21 L 21 L BUN 16 10 Creatinine 0.61 0.46 L Glucose 133 H 113 H Calcium 8.3 L 8.3 L Cardiac Enzymes 04/12/18 04/13/18 04/13/18 Range/Units 18:28 00:49 06:58 Troponin I 0.05 H* 0.19 H* 0.11 H* (< 0.04) ng/mL - Attending Attestation I examined this patient and my medical decision-making was reviewed with the Resident Physician Dr Mandujano. I agree with the documented findings, dispos ition and treatment plan as described except to the extent set forth below. Ms Kim is in observation for rhabdomyolysis that is the result of increased activity (constant pacing and refusal to sit or lie down) in recent days. This agitation is after outpt procedure for which she received sedation. She has Rett syndrome and this type of episodes is her typical complication she has had in past with her Rett Syndrome as noted by her parents. She was sedated with haldol and Benadryl in ED and has been resting since that time with present at bedside. sitter at bedside.she is non verbal at baseline and all hpi and ros is obtained from parents. Laid in bed all night, did sleep, very tired since ED meds. comfortable appearing. mawake this morning and beginning to be restless in bed but redirectable. gen- asleep, awakes to conversation, appears stated age eyes- pupils equal round cv- reg rate and rhythm, normal s1,s2, no murmurs appreciated, no le edema lungs- ctabl, no wheezing, rhonchi or crackles, normal resp effort on room air neuro- awake, calm, non verbal at baseline, does not follow commands, cn appear grossly intact elevated CK/rhabdo suspect 2/2 recent increased activity- creat remains normal,appears CK has finally peaked, serial checks, cont ivfs -she does not on exam demonstrate muscle pain to palpation, d/w her mothe rand she will require further outpt f/u and w/u with pcp after acute rhabdo resolves leukocytosis suspect reactive- no infectious source identified at this time, bl cxs checked given her recent dental work are ngtd, cxr and ua unremarkable for infection Elevated trop level is likely 2/2 ck/rhabdo- eval by cards and no further work up or treatment required hypokalemia, K+ 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- mother now confirmed she does not actually actively follow with a pcp, will help to establish one on dc, non verbal at baseline, only home med is meloxicam, cont sitter and frequent turning, she has flipped her day night cycle this admit further diagnoses and plan as documented by resident I have personally updated her parent as to plan of care today at dispo she requires set up with pcp follow up as she does not have one <Priyanka Mandujano - Last Filed: 04/13/18 12:10> (1) Rhabdomyolysis Qualifiers: Rhabdomyolysis type: non-traumatic Qualified Code(s): M62.82 - Rhabdomyolysis (4) Leucocytosis Qualifiers: Leukocytosis type: unspecified Qualified Code(s): D72.829 - Elevated white blood cell count, unspecified <Ava Hernandez - Last Filed: 04/13/18 14:38> (3) Rhabdomyolysis Qualifiers: Rhabdomyolysis type: non-traumatic Qualified Code(s): M62.82 - Rhabdomyolysis (5) Leucocytosis Qualifiers: Leukocytosis type: unspecified Qualified Code(s): D72.829 - Elevated white blood cell count, unspecified
[2018-04-13 09:16] LABS: Estimated Average Glucose 105 mg/dl; Hemoglobin A1C 5.3 %
[2018-04-13 09:34] LABS: Hemoglobin 13.5 g/dL (11.5-15.4); Mean Corpuscular HGB Conc 33.8 g/dL (31.6-35.5); Mean Corpuscular Hemoglobin 30.9 pg (28.0-33.3); Mean Corpuscular Volume 91.5 fL (83.0-100.0); Mean Platelet Volume 10.6 fL (9.4-12.4); Platelet Count 218 K/mcL (140-400); Red Blood Count 4.37 M/mcL (3.82-4.97); Red Cell Distribution Width 14.2 % (11.5-14.5)
--- NOTE | 2018-04-13 11:15 | Cardiology Consult Note ---
Date of Encounter: 04/13/18 Time of Encounter: 11:10 Assessment and Plan (1) Rhabdomyolysis Current Visit: Yes Status: Acute Small troponin elevation likely secondary to Rhabdo, doubt ACS. No further cardiac testing needed. Qualifiers: Rhabdomyolysis type: non-traumatic Qualified Code(s): M62.82 - Rhabdomyolysis Discussion w patient/family: The assessment and plan as outlined above was discussed with the patient and/or family members who expressed understanding and agreement. All questions were answered. Thank you for involving us in the care of your patient. Please call with any questions. History of Present Illness Consult date: 04/13/18 Requesting physician: Ava Hernandez Consult reason: Abnormal troponin Chief complaint: MS changes History of present illness: Ms. Kim is a 52 year old female with a history of Rett syndrome presented with possible rhabdo several days ago. Troponin was evaluated and found to be mildly elevated. The pt. is nonverbal and all history is from the parents. The y deny any evidence of chest pain but rather thought the pt. might have had leg or hip discomfort. Past Med Surg Social Fam HX - Past Medical History Medical history: other Additional medical history: Rhetts syndrome, scolliosis Psychiatric history: no psych history - Past Surgical History Surgical History: cholecystectomy Additional surgical history: Back sx - Social History Smoking Status: Never smoker Smokeless Tobacco Status: No Alcohol use: none Drug use: none Medications and Allergies Meloxicam [Mobic] 7.5 mg PO DAILY 04/11/18 [History] Allergy/AdvReac Type Severity Reaction Status Date / Time No Known Allergies Allergy Verified 04/11/18 15:35 All Systems Review: The remainder of the systems were reviewed and are negative Physical Examination Vital Signs, Last 4 Hours Temp BP 04/13/18 07:42 98.2 F 153/97 General: No Apparent Distress HEENT: Atraumatic, Normocephaly, Mucus Membranes Moist Neck: No JVD, Normal carotid pulses Cardiac: Reg Rate and Rhythm, Normal S1 and S2, No Murmur Lungs: Other Neuro: Alert and responsive, No focal deficits noted Abdomen: Soft, Non-Tender Musculoskeletal: No Chest Wall Tenderness Results 04/13/18 09:12 04/13/18 00:49 Lab Results 04/12/18 04/12/18 04/13/18 18:28 18:28 00:49 WBC 12.0 H Hgb 13.5 Hct 41.8 Plt Count 220 Sodium 141 Potassium 3.6 Chloride 113 H Carbon Dioxide 21 L BUN 16 Creatinine 0.61 Glucose 133 H Calcium 8.3 L Troponin I 0.05 H* 04/13/18 04/13/18 04/13/18 00:49 00:49 06:58 WBC Hgb Hct Plt Count Sodium 138 Potassium 3.4 L Chloride 109 H Carbon Dioxide 21 L BUN 10 Creatinine 0.46 L Glucose 113 H Calcium 8.3 L Troponin I 0.19 H* 0.11 H* 04/13/18 09:12 WBC 11.3 H Hgb 13.5 Hct 40.0 Plt Count 218 Sodium Potassium Chloride Carbon Dioxide BUN Creatinine Glucose Calcium Troponin I - EKG Interpretation EKG results cardiology: personally reviewed (sinus tachy, significant artifact) Consult Discharge Plan - Plan Referrals: NONE,PCP [Primary Care Provider] -
[2018-04-13] MEDS ORDERED: Furosemide 20 MG/2 ML VIAL IVP ONE ×2 (18:03→18:05)
[2018-04-13] MEDS ORDERED: *HR* Dextrose 50 % in Water (Syg) 50 ML SYRINGE ONE (18:06)
[2018-04-13] MEDS ORDERED: *HR* Dextrose 50 % in Water (Syg) 50 ML SYRINGE IVP ONE (18:18)
--- NOTE | 2018-04-13 18:50 | Event Note ---
Date of Encounter: 04/13/18 Time of Encounter: 18:00 notified by pt rn that pt had increased resp rate and o2 sat that dropped into upper 80s on VS check. BP and HR stable. bs 70. Stat CXR ordered, IVF turned off and 20 mg IV lasix given due to O2 up to 5L NC, glucose given as well. O2 has since been turned down to 2L NC with goal sats. RN will fu bs re check. If CXR shows signs of fluid overload will have to cont to hold IVF overnight. Plan discussed in detail with pt RN. Pt mother informed us today she does not at all fu with pcp for routine care. She has no documented hx of chf and has not demonstrated figns of fluid overload with high rate fluids this admit, but given her lack of outpt screening/care, un dx chf is of concern
--- NOTE | 2018-04-13 20:04 | Event Note ---
Date of Encounter: 04/13/18 Time of Encounter: 19:34 Notified by nurse of patient xray results back. Results - Cardiomegaly. Possible tiny left effusion. No pulmonary edema. Due to new findings on chest xray and patient symptoms, will continue to hold fluids at this time, echocardiogram already ordered. Patient symptoms and vitals much improved at this time per nurse. Reviewed with Dr Bobby.
[2018-04-14] MEDS: *HR* Heparin 5,000 UNIT/ML VIAL SQ SCH ×2 (05:00→19:33)
[2018-04-14 05:54] LABS: INR 1.2; Prothrombin Time 13.3 Seconds (9.4-12.1)
[2018-04-14 06:11] LABS: BUN/Creatinine Ratio 21 (6-26); Blood Urea Nitrogen 10 mg/dL (6-20); Calcium 8.9 mg/dL (8.6-10.3); Carbon Dioxide 20 mEq/L (23-29); Chloride 104 mEq/L (98-107); Creatine Kinase 1314 Units/L (30-223); Glucose 103 mg/dL (70-105); Osmolality,Calculated 287 (280-300); Potassium 2.9 mEq/L (3.5-5.1); Sodium 139 mEq/L (136-145); eGFR For Non-African Americans > 60 (> 60)
[2018-04-14] MEDS ORDERED: Potassium Chloride Elixir 20 MEQ/15 ML UDC PO ONE (07:28)
[2018-04-14 08:27] LABS: Basophils # 0.1 K/mcL (0.0-0.2); Basophils % 0.6 %; Eosinophils # 0.2 K/mcL (0.0-0.6); Eosinophils % 1.9 %; Hematocrit 45.6 % (35.3-44.9); Immature Granulocytes % 0.6 % (0-4); Lymphocytes # 0.9 K/mcL (0.6-4.6); Lymphocytes % 10.8 %; Mean Corpuscular HGB Conc 33.1 g/dL (31.6-35.5); Mean Corpuscular Hemoglobin 30.2 pg (28.0-33.3); Mean Corpuscular Volume 91.2 fL (83.0-100.0); Mean Platelet Volume 10.6 fL (9.4-12.4); Monocytes # 0.6 K/mcL (0.0-1.3); Monocytes % 7.5 %; Neutrophils # 6.7 K/mcL (1.6-8.9); Platelet Count 258 K/mcL (140-400); Red Cell Distribution Width 14.2 % (11.5-14.5); Segmented Neutrophils % 78.6 %
--- NOTE | 2018-04-14 08:31 | Internal Med Progress Note ---
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 (2) Lactic acidosis Current Visit: Yes Status: Resolved (3) Rhabdomyolysis Current Visit: Yes Status: Acute (4) DVT prophylaxis Current Visit: Yes Status: Acute (5) Leucocytosis Current Visit: Yes Status: Resolved (6) Elevated troponin Current Visit: Yes Status: Acute - Time Spent with Patient Total time spent is greater than 50% in coordination of care (as documented) at patient's floor/unit and/or counseling patient: Internal Medicine: Result - Labs CBC & Chem 7: 04/14/18 08:13 04/14/18 14:49 Labs: Short CBC 04/14/18 Range/Units 08:13 WBC 8.5 (4.3-11.1) K/mcL Hgb 15.1 D (11.5-15.4) g/dL Hct 45.6 H (35.3-44.9) % Plt Count 258 (140-400) K/mcL Neutrophils # 6.7 (1.6-8.9) K/mcL BMP 04/14/18 05:17 Sodium 139 Potassium 2.9 L Chloride 104 Carbon Dioxide 20 L BUN 10 Creatinine 0.47 L Glucose 103 Calcium 8.9 Urine 04/14/18 Range/Units 09:50 Urine Color Yellow (Yellow) Urine Clarity Clear (Clear) Urine pH 6.0 (5.0-8.0) pH Units Ur Specific [place] 1.024 (1.010-1.025) Urine Protein 30 H (Neg-Trace) mg/dL Urine Glucose (UA) Normal (Normal) mg/dL - ABG Interpretation ABG results: PT/INR, D-dimer PT 13.3 Seconds (9.4-12.1) H 04/14/18 05:17 D-Dimer 734 ng/mLFEU (0-500) H 04/14/18 08:03 - Impressions Impressions Chest X-Ray 04/13/18 17:53 IMPRESSION: Cardiomegaly. Possible tiny left effusion. No pulmonary edema. D/ / Luis Tang / Luis Tang Interpreting Provider: Luis Tang Chest CTA 04/14/18 11:02 IMPRESSION: 1. No evidence for acute pulmonary embolism. 2. Minor subsegmental atelectasis posterior lung bases. No clear evidence for pneumonia. Findings could be the residual of prior pneumonitis. 3. Mild centrilobular emphysema. D/ / Oli Valle MD / Oli Valle MD Interpreting Provider: Oli Valle MD Consult Discharge Plan - Plan Referrals: NONE,PCP [Primary Care Provider] - - Attending Attestation I examined this patient and my medical decision-making was reviewed with the Resident Physician Dr Dey. I agree with the documented findings, disposition and treatment plan as described except to the extent set forth below. Ms Kim is in observation for rhabdomyolysis that is the result of increased activity (constant pacing and refusal to sit or lie down) in recent days. This agitation is after outpt procedure for which she received sedation. She has Rett syndrome and this type of episodes is her typical complication she has had in past with her Rett Syndrome as noted by her parents. Pt awake, alert, resting in bed, mother and RN at bedside. Awake all night last night and now tired appearing today. Mother feels not at baseline activity, may have flipped day night cycle. Does not feel she appears to be in distress. RN confirms no diarrhea, no overnight reports of discomfort. Temp was 100.6, afebrile this morning. WBC elevation resolved. IVF remain off awaiting echo, o2 sats stable on 2l nc, and KCL IV running. all history from mother and rn as pt non verbal at baseline gen- awake, alert, appears stated age, tired appearing eyes- pupils equal round, round reactive cv- tachy rate low 100s on tele at bedside and reg rhythm, normal s1,s2, no murmurs appreciated, no le edema, no jvd lungs- ctabl, no wheezing, rhonchi or crackles, normal resp effort on o2 nc neuro- awake, calm, non verbal at baseline, does not follow commands, cn appear grossly intact, cannot appreciate facial droop. She is not moving any ext sponateously to assess for focal deficits. elevated CK/rhabdo suspect 2/2 recent increased activity- creat remains normal, ck down trending, even off ivf overnight, afternoon check and further fluid plan pending repeat ck and echo result -she does not on exam demonstrate muscle pain to palpation, d/w her mother and she will require further outpt f/u and w/u with pcp after acute rhabdo resolves leukocytosis suspect reactive now resolved Single Episode fever overnight 100.6 - no infectious source identified at this time -repeat bl cxs and ua, cxr without infectious process -check dimer and given elevated, check cta- low suspicion for PE given increased ambulation at hime prior to admit and heparin vte ppx sq since admit Elevated trop level is likely 2/2 ck/rhabdo- eval by cards and no further work up or treatment required Acute hypoxic resp failure- cxr without consolidation, possible small left effusion vs fat pad, dimer elevated, check cta, monitoring for fluid overload, echo pending hypokalemia,- IV and po repletion, repeat level later today rett syndrome- mother now confirmed she does not actually actively follow with a pcp, will help to establish one on dc, non verbal at baseline, only home med is meloxicam, she has flipped her day night cycle this admit, consult neuro for eval to determine if current presentation/rhabdo could be related to Rett syndrome complication (other than increased agitation) and if any other treatment is recommended further diagnoses and plan as documented by resident I have personally updated her parent as to plan of care today at dispo she requires set up with pcp follow up as she does not have one <Jamaal Dey - Last Filed: 04/14/18 16:57> Hospitalist Progress Note - Encounter Date of Encounter: 04/14/18 Time of Encounter: 14:00 - Subjective Interval History: Evaluated patient at bedside this morning. Patient is nonverbal. Spoke with patient's mother at bedside who states that this is not at patient's baseline. Nursing at bedside states that the patient is not taking anything by mouth and refusing her potassium supplementation. - Exam Vitals: Temp Pulse Resp BP Pulse Ox 99.7 F H 97 18 138/97 98 04/14/18 06:38 04/14/18 06:38 04/14/18 06:38 04/14/18 06:38 04/14/18 06:38 Exam: Constitutional: Patient laying in bed, no acute distress. Does not interact during examination or respond to questions. Cardiovascular: Regular rate and rhythm, normal S1, normal S2. No murmurs Respiratory: Clear to auscultation bilaterally no wheezes. Abdomen: Soft, nontender, no guarding or rigidity. Skin: Clean dry intact - Assessment and Plan (1) Rhabdomyolysis Current Visit: Yes Status: Acute Assessment and Plan: Creatinine kinase increased on admission to 4436, this has slowly decreased with IV hydration and is most recently 1314. Patient has reportedly not been on IV fluids overnight. Holding fluids until patient undergoes 2-D echo. If normal will resume fluids out of lower rate will reobtain creatinine kinase and potassium levels this afternoon. Follow up on CK and potassium Echo normal, will restart fluids after CK and potassium return. 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 Parents are primary caretakers. Mother does not know of any other comorbidities that the patient has. Consulted neurology for patient's altered mental status. Suspect this may be likely due to underlying metabolic etiology, but due to patient's Rett syndrome cannot rule out underlying neurological cause. (3) Lactic acidosis Current Visit: Yes Status: Resolved Assessment and Plan: Resolved (4) DVT prophylaxis Current Visit: Yes Status: Acute Assessment and Plan: Heparin SQ (5) Leucocytosis Current Visit: Yes Status: Resolved Assessment and Plan: Leukocytosis resolved. Patient had one elevated temperature of 100.6. Subsequent temperature readings have been normal. Obtained a CT angiogram and ruled out PE. We will continue to monitor. (6) Elevated troponin Current Visit: Yes Status: Acute Assessment and Plan: Per cardiology, elevated troponin likely secondary to rhabdomyolysis. No cardiac intervention warranted at this time. CTA negative for PE. Echo shows normal ejection fraction of 65-70% with mild left ventricular diastolic dysfunction. - Time Spent with Patient Total time spent is greater than 50% in coordination of care (as documented) at patient's floor/unit and/or counseling patient: Internal Medicine: Result - Labs CBC & Chem 7: 04/14/18 08:13 04/14/18 14:49 Labs: Short CBC 04/13/18 Range/Units 09:12 WBC 11.3 H (4.3-11.1) K/mcL Hgb 13.5 (11.5-15.4) g/dL Hct 40.0 (35.3-44.9) % Plt Count 218 (140-400) K/mcL BMP 04/14/18 05:17 Sodium 139 Potassium 2.9 L Chloride 104 Carbon Dioxide 20 L BUN 10 Creatinine 0.47 L Glucose 103 Calcium 8.9 - ABG Interpretation ABG results: PT/INR, D-dimer PT 13.3 Seconds (9.4-12.1) H 04/14/18 05:17 - Impressions Impressions Chest X-Ray 04/13/18 17:53 IMPRESSION: Cardiomegaly. Possible tiny left effusion. No pulmonary edema. D/ / Luis Tang / Luis Tang Interpreting Provider: Luis Tang <Ava Hernandez - Last Filed: 04/14/18 15:54> (3) Rhabdomyolysis Qualifiers: Rhabdomyolysis type: non-traumatic Qualified Code(s): M62.82 - Rhabdomyolysis (5) Leucocytosis Qualifiers: Leukocytosis type: unspecified Qualified Code(s): D72.829 - Elevated white blood cell count, unspecified <Jamaal Dey - Last Filed: 04/14/18 16:57> (1) Rhabdomyolysis Qualifiers: Rhabdomyolysis type: non-traumatic Qualified Code(s): M62.82 - Rhabdomyolysis (5) Leucocytosis Qualifiers: Leukocytosis type: unspecified Qualified Code(s): D72.829 - Elevated white blood cell count, unspecified
[2018-04-14 08:38] LABS: Hemoglobin 15.1 g/dL (11.5-15.4)
[2018-04-14] MEDS: 0.9 % Sodium Chloride 1,000 ML IVC SCH ×5 (09:02→22:11)
[2018-04-14 10:19] LABS: Bilirubin,Urine Small (Negative); Blood,Urine Large (Negative); Clarity,Urine Clear (Clear); Color,Urine Yellow (Yellow); Glucose,Urine (UA) Normal (Normal); Ketones,Urine >=160 mg/dL (Negative); Leukocyte Esterase,Urine Negative (Negative); Nitrite,Urine Negative (Negative); Protein,Urine 30 mg/dL (Neg-Trace); Specific Gravity,Urine 1.024 (1.010-1.025); Urobilinogen,Urine Normal (Normal)
[2018-04-14 10:22] LABS: Bacteria,Urine None Seen per hpf (None-Few); Hyaline Casts,Urine Few per lpf (None-Few); Squamous Epithelial Cell,Urine Many per lpf (None-Few)
[2018-04-14] MEDS ORDERED: Isovue-370 500 ML INFUS..BTL IV ONE (11:02)
--- NOTE | 2018-04-14 13:28 | Electrocardiograph Report ---
[address] [address] Test Date: 2018-04-11 Pat Name: Liat Kim Department: EXAM14 Room: 2NE34 Gender: F Typewriter Assembler: : 1965 Requested By: Jd Green Order Number: [id number] Reading MD: Joce Nance Measurements Intervals [place] Rate: 125 P: 39 LA: 147 QRS: -9 QRSD: 150 T: 22 QT: 304 QTc: 439 Interpretive Statements Sinus tachycardia Artifact complicates interpretation Recommend repeat ECG Electronically Signed On 04-14-2018 13:26:38 EST by Joce Nance
--- NOTE | 2018-04-14 14:37 | Neurology - Consult Note ---
Addendum entered and electronically signed by Rafael Hilliard MD 04/14/18 15:51: Patient seen and examined in the presence of Dr. Bruno Aleman and i agree with his history taking, physical examination, assessment and plan. In summery the patient with known Rett's syndrome who developed agitation, unusual behavior, stereotypical movements intermixed with prolonged starring spell, excessive daytime sleepiness, intermixed with transient fever, lethargy and laboratory evidence of elevated CK, which is improving upon aggressive medical treatment. It is my opinion that the constellation of her currently presentation are still consistent with her symptoms of Rett syndrome, which include mental slow, abnormal movements and behavior, sleep disturbances, which can be aggravated by ongoing medical provocations. I found no focal neurological deficits, on her baseline muscle rigidity, weakness and loss of dexterity. However i would suggest CT of head without and contrast. And also an routine EEG to rule out seizures. Total time spend on the case is approximately 50 minutes, of which more than 50% were spend on direct patient care and the rest on coordination of care and counselling. 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 - Known history of Rett syndrome, nonverbal at baseline - Patients caregivers are her family and a family friend; patient requires 24- hour supervision - Presented after an acute change in behavior since a dental procedure - Patient was reportedly more agitated and had been walking in circles and pacing in her room - Patient also had a decrease in sleep - Per family at bedside, patient was initially agitated after her dental procedure - Patient states that now, although that she does is lay in bed - Patient is able to track me with her eyes, but is nonverbal, has no further interaction, does not follow commands - It is unknown if her initial anxiety and agitation were due to her Rett syndrome or an underlying medical condition Plan: - We will obtain CT scan of the head stat to rule out underlying neurologic etiology - Continue bedside sitter - Every 2 hours turning History of Present Illness HPI: Liat Kim is a 52-year-old female with a PMH of Rett syndrome who presented to [facility] ED on 04/11/18 with unusual behavior. History was obtained from mother and father. Patient is nonverbal at baseline, and is able to ambulate. W lc present in [facility]. Family reported that patient had become very anxious and agitated and paced throughout her room, walking in circles, and had been getting progressively worse over the past 2 weeks. They reported that she was unable to sleep, getting approximately 3hrs of sleep at the time. This started approximately 2 weeks prior following a dental procedure during which she was nasally intubated. There were no complications from the procedure. Patient appeared more confused and seemed to grimace when changing from a standing position to getting into bed. The family reported that this behavior was unusual. Family also reported constipation requiring Colace. She had repeatedly pointed toward her hip, as if she had pain there. She also had slight swelling in her lower extremities. Patient requires someone with her 24 hours a day. She does not take any other medications at home, and has no other known medical history other than Rett syndrome. Patient sees a PCP, but does not see a particular specialist. On arrival, vital signs were WNL. White count was 12.1, CK was elevated at 754, lactic acid 3.2. UA demonstrated no signs of infection. Chest and pelvic x-ray were negative for acute changes. Patient became agitated and combative with staff, and Haldol and Benadryl were both administered. After being admitted, patient had an increase of troponin from 0.05-0.19, as well as an increasing CK to [id number]. EKG was ordered and cardiology was consulted. Per cardiology, patients condition was unlikely due to ACS, and cardiology signed off. Afterward, patient developed an episode of hypoxia on 04/13. O2 sat dropped to the upper 80s. X-ray was obtained and demonstrated the following: Cardiomegaly with possible tiny L-sided effusion. No pulmonary edema. TTE and CTA of the chest were ordered. Echo showed LVEF 65-70%, mild left ventricular diastolic dysfunction. CTA showed no acute evidence of PE, mild atelectasis in the posterior lung bases. No clear evidence of pneumonia. Mild centrilobular emphysema. Patient was seen and examined at bedside; accompanied by family. Lengthy conversation was had with family about patient's history and her baseline. According to the family, patient is normally able to walk around and accompany them with daily activities. She is nonverbal, and has limited use of her hands. They report that when her dental procedure was done, she became agitated and was not acting like herself. Since she has been in the hospital, the family claims that now all she does is laying in bed. She does not walk around like she normally does. Patient has received several medications to help calm her down. Review of systems is unobtainable from patient. According to the family, patient normally does follow simple instructions, however for me she is unable to do so. Past Med Surg Social Fam HX - Past Medical History Medical history: other Additional medical history: Rhetts syndrome, scolliosis Psychiatric history: no psych history - Past Surgical History Surgical History: cholecystectomy Additional surgical history: Back sx - Social History Smoking Status: Never smoker Smokeless Tobacco Status: No Alcohol use: none Drug use: none Medications and Allergies Meloxicam [Mobic] 7.5 mg PO DAILY 04/11/18 [History] Allergy/AdvReac Type Severity Reaction Status Date / Time No Known Allergies Allergy Verified 04/11/18 15:35 ROS unobtainable: due to mental status All Systems: The remainder of the systems were reviewed and are negative Physical Examination - Vital Signs Vital Signs: Initial Vital Signs Temp Resp BP 98.9 F 20 139/78 04/11/18 14:52 04/11/18 14:52 04/11/18 14:52 - Constitutional General appearance: other (Patient does not interact; able to track with eyes, but has long periods of staring into space) - Neurologic Sensorimotor examination: other (Unable to assess, as patient does not follow commands) Detailed sensory examination: other (Unable to assess) Reflex and gait examination: other (Patient does not get out of bed and walk, although family members state that she is normally able to do so) Reflexes: Patella: 2+ Mental Status Examination: awake, does not follow commands, makes eye contact Results - Laboratory Findings CBC and BMP: 04/14/18 08:13 04/14/18 14:49 Abnormal lab findings: Abnormal lab results RBC 5.00 M/mcL (3.82-4.97) H 04/14/18 08:13 Hct 45.6 % (35.3-44.9) H 04/14/18 08:13 PT 13.3 Seconds (9.4-12.1) H 04/14/18 05:17 D-Dimer 734 ng/mLFEU (0-500) H 04/14/18 08:03 Potassium 2.9 mEq/L (3.5-5.1) L 04/14/18 05:17 Carbon Dioxide 20 mEq/L (23-29) L 04/14/18 05:17 Creatinine 0.47 mg/dL (0.60-1.20) L 04/14/18 05:17 POC Glucose 125 mg/dL (70-99) H 04/13/18 18:46 Alkaline Phosphatase 126 Units/L (34-104) H 04/12/18 04:05 Creatine Kinase 1314 Units/L (30-223) H 04/14/18 05:17 Troponin I 0.11 ng/mL (< 0.04) H* 04/13/18 06:58 LDL Cholesterol, Calc 110 mg/dL (0-99) H 04/13/18 06:58 Urine Protein 30 mg/dL (Neg-Trace) H 04/14/18 09:50 Urine Ketones >=160 mg/dL (Negative) H 04/14/18 09:50 Urine Blood Large (Negative) H 04/14/18 09:50 Urine Bilirubin Small (Negative) H 04/14/18 09:50 Urine Microscopic RBC 5-15 per hpf (0-3) H 04/14/18 09:50 Urine Microscopic WBC 5-15 per hpf (0-3) H 04/14/18 09:50 Ur Squamous Epith Cells Many per lpf (None-Few) H 04/14/18 09:50 Consult Discharge Plan - Plan Referrals: NONE,PCP [Primary Care Provider] -
--- NOTE | 2018-04-14 15:01 | Electrocardiograph Report ---
[address] [address] Test Date: 2018-04-12 Pat Name: Liat Kim Department: 111 Room: [facility] Gender: F Weight Checker: TOM : 1965 Requested By: Priyanka Mandujano Order Number: [id number] Reading MD: Joce Nance Measurements Intervals [place] Rate: 108 P: 59 [place]: 150 QRS: 9 QRSD: 83 T: 27 QT: 264 QTc: 327 Interpretive Statements SINUS TACHYCARDIA NONSPECIFIC T-WAVE ABNORMALITY ABNORMAL RHYTHM ECG Electronically Signed On 04-14-2018 14:59:59 EST by Joce Nance
--- NOTE | 2018-04-14 15:17 | Electrocardiograph Report ---
[place] [address] Test Date: 2018-04-13 Pat Name: Liat Kim Department: 111 Room: [facility] Gender: F Barrel Inspector: : 1965 Requested By: Carroll Easley Order Number: [id number] Reading MD: Joce Nance Measurements Intervals [place] Rate: 98 P: 73 IN: 160 QRS: 15 QRSD: 80 T: 33 QT: 364 QTc: 420 Interpretive Statements SINUS RHYTHM BASELINE ARTIFACT Electronically Signed On 04-14-2018 15:15:54 EST by Joce Nance
--- NOTE | 2018-04-14 15:18 | Electrocardiograph Report ---
[address] [address] Test Date: 2018-04-13 Pat Name: Liat Kim Department: 111 Room: [id number] Gender: F Cartographic Aide: TOM : 1965 Requested By: Jaiden Bobby Order Number: [id number] Reading MD: Joce Nance Measurements Intervals [place] Rate: 100 P: 73 ID: [id number] QRS: 10 QRSD: 84 T: 15 QT: 278 QTc: 335 Interpretive Statements SINUS TACHYCARDIA BASELINE ARTIFACT ABNORMAL RHYTHM ECG Electronically Signed On 04-14-2018 15:17:18 EST by Joce Nance
[2018-04-14 15:25] LABS: BUN/Creatinine Ratio 29 (6-26); Blood Urea Nitrogen 14 mg/dL (6-20); Calcium 9.2 mg/dL (8.6-10.3); Carbon Dioxide 21 mEq/L (23-29); Chloride 106 mEq/L (98-107); Glucose 90 mg/dL (70-105); Osmolality,Calculated 292 (280-300); Potassium 3.5 mEq/L (3.5-5.1); Sodium 141 mEq/L (136-145); eGFR For Non-African Americans > 60 (> 60)
[2018-04-14 17:12] LABS: Creatine Kinase 1053 Units/L (30-223)
[2018-04-14] MEDS: D5% in Lactated Ringers 1,000 ML IVC SCH (19:32)
[2018-04-15 04:32] LABS: Basophils % 0.5 %; Eosinophils # 0.2 K/mcL (0.0-0.6); Eosinophils % 2.9 %; Hematocrit 43.5 % (35.3-44.9); Hemoglobin 14.5 g/dL (11.5-15.4); Immature Granulocytes % 0.6 % (0-4); Lymphocytes # 0.9 K/mcL (0.6-4.6); Lymphocytes % 11.6 %; Mean Corpuscular HGB Conc 33.3 g/dL (31.6-35.5); Mean Corpuscular Hemoglobin 30.1 pg (28.0-33.3); Mean Corpuscular Volume 90.4 fL (83.0-100.0); Mean Platelet Volume 10.4 fL (9.4-12.4); Monocytes # 0.7 K/mcL (0.0-1.3); Monocytes % 8.7 %; Platelet Count 260 K/mcL (140-400); Red Blood Count 4.81 M/mcL (3.82-4.97); Red Cell Distribution Width 14.2 % (11.5-14.5); Segmented Neutrophils % 75.7 %
[2018-04-15 04:46] LABS: BUN/Creatinine Ratio 38 (6-26); Blood Urea Nitrogen 17 mg/dL (6-20); Calcium 8.9 mg/dL (8.6-10.3); Carbon Dioxide 20 mEq/L (23-29); Chloride 107 mEq/L (98-107); Glucose 129 mg/dL (70-105); Osmolality,Calculated 295 (280-300); Potassium 2.9 mEq/L (3.5-5.1); Sodium 141 mEq/L (136-145); eGFR For Non-African Americans > 60 (> 60)
[2018-04-15] MEDS: *HR* Heparin 5,000 UNIT/ML VIAL SQ SCH ×2 (05:22→19:03)
--- NOTE | 2018-04-15 07:10 | Internal Med Progress Note ---
<NaaJamaal hanna N - Last Filed: 04/15/18 08:57> Hospitalist Progress Note - Encounter Date of Encounter: 04/15/18 Time of Encounter: 08:52 - Subjective Interval History: Patient seen and examined at bedside this morning. She remains nonverbal, family is not present at bedside. Spoke with nursing staff who state patient continues to refuse PO and failed her bedside swallow evaluation. - Exam Vitals: Temp Pulse Resp BP Pulse Ox 99.2 F 104 15 144/92 92 04/15/18 04:03 04/15/18 04:03 04/15/18 04:03 04/15/18 04:03 04/15/18 04:03 Exam: Constitutional: Patient laying in bed, no acute distress. She is awake but non verbal. Does not interact during examination or respond to questions. Cardiovascular: Regular rate and rhythm, normal S1, normal S2. No murmurs Respiratory: Clear to auscultation bilaterally no wheezes. Abdomen: Soft, nontender, no guarding or rigidity. 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 Parents are primary caretakers. Mother does not know of any other comorbidities that the patient has. Consulted neurology for patient's altered mental status. Neurology consult does not appreciate an underlying neurological disorder for patient's change in mental status. CT head was obtained and was unremarkable EEG pending. (2) Rhabdomyolysis Current Visit: Yes Status: Acute Assessment and Plan: Creatinine kinase increased on admission to 4436, this has slowly decreased with IV hydration and is most recently 758. Patient is on LR 75ml/hr. Continue to monitor CK. Continue fluids as patient is not tolerating PO fluids. Speech consult for swallow evaluation pending (3) Lactic acidosis Current Visit: Yes Status: Resolved Assessment and Plan: Resolved (4) DVT prophylaxis Current Visit: Yes Status: Acute Assessment and Plan: Heparin SQ (5) Leucocytosis Current Visit: Yes Status: Resolved Assessment and Plan: Leukocytosis resolved. Patient had one elevated temperature of 100.6. Subsequent temperature readings have been normal. Obtained a CT angiogram and ruled out PE. We will continue to monitor. (6) Elevated troponin Current Visit: Yes Status: Acute Assessment and Plan: Per cardiology, elevated troponin likely secondary to rhabdomyolysis. No cardiac intervention warranted at this time. CTA negative for PE. Echo shows normal ejection fraction of 65-70% with mild left ventricular diastolic dysfunction. (7) Hypokalemia Current Visit: Yes Status: Acute Assessment and Plan: Patient continues to have low potassium readings. most recent 2.9 this morning. Plan replace with IV potassium as patient is not tolerating PO Recheck in afternoon continue to monitor - Time Spent with Patient Total time spent is greater than 50% in coordination of care (as documented) at patient's floor/unit and/or counseling patient: Internal Medicine: Result - Labs CBC & Chem 7: 04/15/18 03:22 04/15/18 03:22 Labs: Short CBC 04/14/18 04/15/18 Range/Units 08:13 03:22 WBC 8.5 7.9 (4.3-11.1) K/mcL Hgb 15.1 D 14.5 (11.5-15.4) g/dL Hct 45.6 H 43.5 (35.3-44.9) % Plt Count 258 260 (140-400) K/mcL Neutrophils # 6.7 6.0 (1.6-8.9) K/mcL BMP 04/14/18 04/15/18 14:49 03:22 Sodium 141 141 Potassium 3.5 2.9 L Chloride 106 107 Carbon Dioxide 21 L 20 L BUN 14 17 Creatinine 0.48 L 0.45 L Glucose 90 129 H Calcium 9.2 8.9 Urine 04/14/18 Range/Units 09:50 Urine Color Yellow (Yellow) Urine Clarity Clear (Clear) Urine pH 6.0 (5.0-8.0) pH Units Ur Specific [place] 1.024 (1.010-1.025) Urine Protein 30 H (Neg-Trace) mg/dL Urine Glucose (UA) Normal (Normal) mg/dL - ABG Interpretation ABG results: PT/INR, D-dimer PT 13.3 Seconds (9.4-12.1) H 04/14/18 05:17 D-Dimer 734 ng/mLFEU (0-500) H 04/14/18 08:03 - Impressions Impressions Chest CTA 04/14/18 11:02 IMPRESSION: 1. No evidence for acute pulmonary embolism. 2. Minor subsegmental atelectasis posterior lung bases. No clear evidence for pneumonia. Findings could be the residual of prior pneumonitis. 3. Mild centrilobular emphysema. D/ / Oli Valle MD / Oli Valle MD Interpreting Provider: Oli Valle MD Head CT 04/14/18 15:23 IMPRESSION: No acute intracranial abnormality. D/ / Stanley Peña MD / Stanley Peña MD Interpreting Provider: Stanley Peña MD Echocardiogram 04/14/18 18:52 Impressions: LVEF 65-70%. Normal LV chamber size, wall thickness and function. Mild left ventricular diastolic dysfunction. Normal right ventricular structure and function. Unable to estimate RVSP due to lack of TR jet. No significant valvular dysfunction. Left Ventricular Wall Motion: Rest Echo Findings All wall segments showed normal motion. Findings: Study Quality * Technically adequate exam. ECG Findings * Sinus tachycardia. Left Ventricle * LVEF 65-70%. * Normal LV chamber size, wall thickness and function. * Mild left ventricular diastolic dysfunction. Right Ventricle * Normal right ventricular structure and function. Left Atrium * Normal left atrial size. Right Atrium * Normal right atrial size. Aortic Valve * Trileaflet aortic valve with normal function. * No aortic stenosis. * No aortic regurgitation. Mitral Valve * Normal mitral valve structure and function. * No mitral stenosis. * Trace mitral regurgitation. Tricuspid Valve * Normal tricuspid valve structure and function. * No tricuspid regurgitation. * Unable to estimate RVSP due to lack of TR jet. Pulmonic Valve * Normal pulmonic valve structure and function. * Trace pulmonic regurgitation. Aorta * Normally sized aortic root. Pericardium * The pericardium appears normal. IVC * The IVC is not well evaluated. Pulmonary Artery * Pulmonary artery not well visualized. 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 (2) Lactic acidosis Current Visit: Yes Status: Resolved (3) Rhabdomyolysis Current Visit: Yes Status: Acute (4) DVT prophylaxis Current Visit: Yes Status: Acute (5) Leucocytosis Current Visit: Yes Status: Resolved (6) Elevated troponin Current Visit: Yes Status: Acute (7) Hypokalemia Current Visit: Yes Status: Acute - Time Spent with Patient Total time spent is greater than 50% in coordination of care (as documented) at patient's floor/unit and/or counseling patient: Internal Medicine: Result - Labs CBC & Chem 7: 04/15/18 03:22 04/15/18 13:51 Labs: Short CBC 04/15/18 Range/Units 03:22 WBC 7.9 (4.3-11.1) K/mcL Hgb 14.5 (11.5-15.4) g/dL Hct 43.5 (35.3-44.9) % Plt Count 260 (140-400) K/mcL Neutrophils # 6.0 (1.6-8.9) K/mcL BMP 04/14/18 04/15/18 04/15/18 14:49 03:22 13:51 Sodium 141 141 139 Potassium 3.5 2.9 L 3.6 Chloride 106 107 106 Carbon Dioxide 21 L 20 L 25 BUN 14 17 16 Creatinine 0.48 L 0.45 L 0.49 L Glucose 90 129 H 163 H Calcium 9.2 8.9 8.9 - ABG Interpretation ABG results: PT/INR, D-dimer PT 13.3 Seconds (9.4-12.1) H 04/14/18 05:17 D-Dimer 734 ng/mLFEU (0-500) H 04/14/18 08:03 - Impressions Impressions Head CT 04/14/18 15:23 IMPRESSION: No acute intracranial abnormality. D/ / Stanley Peña MD / Stanley Peña MD Interpreting Provider: Stanley Peña MD - Attending Attestation I examined this patient and my medical decision-making was reviewed with the Resident Physician on 04/15/18. I agree with the documented findings, disposition and treatment plan as described except to the extent set forth below. Ms Kim is currently admitted for acute rhabdo and electrolyte imbalance. She remains moderate to high risk due to potential for worsening clinical status. Ms Kim is not eating or drinking much. Her parents are at the bedside. Mom has been encouraging her to eat some. No fever or chills. CPK decreasing. Exam alert Comfortable Mucus membranes dry Heart regular and not tachy No wheeze Abd soft No edema I/P 1. Acute rhabdo - slowly improving with hydration. 2. Rett syndrome 3. Hypokalemia - replace Discussed with mother - medically improving. Further diagnoses and plan as above. <Jamaal eDy - Last Filed: 04/15/18 08:57> (2) Rhabdomyolysis Qualifiers: Rhabdomyolysis type: non-traumatic Qualified Code(s): M62.82 - Rhabdomyolysis (5) Leucocytosis Qualifiers: Leukocytosis type: unspecified Qualified Code(s): D72.829 - Elevated white blood cell count, unspecified <Jayesh Marinelli - Last Filed: 04/15/18 16:07> (3) Rhabdomyolysis Qualifiers: Rhabdomyolysis type: non-traumatic Qualified Code(s): M62.82 - Rhabdomyolysis (5) Leucocytosis Qualifiers: Leukocytosis type: unspecified Qualified Code(s): D72.829 - Elevated white blood cell count, unspecified
[2018-04-15] MEDS ORDERED: Potassium Chloride Elixir 20 MEQ/15 ML UDC PO ONE (07:17)
[2018-04-15 07:50] LABS: Creatine Kinase 758 Units/L (30-223)
[2018-04-15] MEDS ORDERED: Potassium Chloride 40 MEQ, Lidocaine 1% 2 ML in D5% in Water 500 ML IVPB ONE ×2 (08:14→14:00)
--- NOTE | 2018-04-15 10:32 | EEG/EMG/Oth Biometrics Report ---
EEG Procedure Report Date of procedure: 04/15/18 EEG Procedure: Routine EEG Procedure Note: This EEG was acquired with standard international 10-20 system with EKG recording. The background EEG activity was replaced by the presence of low amplitude, fast activity. The background activity was reactive to eye openings and motion activities. Sleep stages were not identified during this tracing. There are no electrographic seizures identified during this tracing. There are no epileptiform discharges and focal slowing noted during this recording. Photic stimulation produced and produced no abnormalities. Hyperventilation procedure not performed. EKG tracing showed no significant cardiac dysrhythmia. Impression: This is essentially a normal awake EEG. Clinical Correlation: Normal EEGs, however, do not exclude epilepsy. Clinical correlation is advised.
[2018-04-15 14:25] LABS: BUN/Creatinine Ratio 33 (6-26); Blood Urea Nitrogen 16 mg/dL (6-20); Calcium 8.9 mg/dL (8.6-10.3); Carbon Dioxide 25 mEq/L (23-29); Chloride 106 mEq/L (98-107); Creatine Kinase 533 Units/L (30-223); Glucose 163 mg/dL (70-105); Osmolality,Calculated 293 (280-300); Potassium 3.6 mEq/L (3.5-5.1); Sodium 139 mEq/L (136-145); eGFR For Non-African Americans > 60 (> 60)
--- NOTE | 2018-04-15 18:49 | Neurology Progress Note ---
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 No fever and WBC normalized. She has no nuchal rigidity. Staring spells are not epileptic since she does respond to visual threat with eye blinking EEG showed no evidence of electrographic seizures or EDs' At this moment would recommend continuing medical and supportive treatment. No further testing from neurology perspective. Subjective Principal diagnosis: Altered mental status Interval history: Patient seen and examined. Patient is still having starring spells, but she blinks her eye to visual threat but would not respond to verbal commands. EEG completed yesterday while the patient was having starring spell showing no electrographic seizures but normal awake EEG. No nuchal rigidity. Objective - Constitutional Vitals: Temp Pulse Resp BP Pulse Ox 97.6 F 107 20 145/95 95 04/15/18 15:51 04/15/18 15:51 04/15/18 15:51 04/15/18 15:51 04/15/18 15:51 - Neurological Exam Sensorimotor examination: Present: other (Unable to assess, as patient does not follow commands) Motor Examination: Present: other (not changes from yesterday, has her both hands flexed and arms flexed at the elbow. slight grab activity noted. Legs are spastic and not moving ) Sensation intact: Present: other (Unable to assess) Posture: Present: other (None specific. Patient maintains eyes opened with reduced blinking but responding to visual threat) Reflex and gait examination: other (Patient does not get out of bed and walk, although family members state that she is normally able to do so) Reflexes: Biceps: 3+, Triceps: 3+, Brachioradialis: 3+, Patella: 3+, Achilles: 3+ Mental Status Examination: Present: awake, alert, does not follow commands, makes eye contact Results - Laboratory Findings CBC and BMP: 04/15/18 03:22 04/15/18 13:51 Abnormal lab findings: Abnormal lab results PT 13.3 Seconds (9.4-12.1) H 04/14/18 05:17 D-Dimer 734 ng/mLFEU (0-500) H 04/14/18 08:03 Creatinine 0.49 mg/dL (0.60-1.20) L 04/15/18 13:51 BUN/Creatinine Ratio 33 (6-26) H 04/15/18 13:51 Glucose 163 mg/dL (70-105) H 04/15/18 13:51 Alkaline Phosphatase 126 Units/L (34-104) H 04/12/18 04:05 Creatine Kinase 533 Units/L (30-223) H 04/15/18 13:51 Troponin I 0.11 ng/mL (< 0.04) H* 04/13/18 06:58 LDL Cholesterol, Calc 110 mg/dL (0-99) H 04/13/18 06:58 Urine Protein 30 mg/dL (Neg-Trace) H 04/14/18 09:50 Urine Ketones >=160 mg/dL (Negative) H 04/14/18 09:50 Urine Blood Large (Negative) H 04/14/18 09:50 Urine Bilirubin Small (Negative) H 04/14/18 09:50 Urine Microscopic RBC 5-15 per hpf (0-3) H 04/14/18 09:50 Urine Microscopic WBC 5-15 per hpf (0-3) H 04/14/18 09:50 Ur Squamous Epith Cells Many per lpf (None-Few) H 04/14/18 09:50 Consult Discharge Plan - Plan Referrals: NONE,PCP [Primary Care Provider] -
[2018-04-15] MEDS: D5% in Lactated Ringers 1,000 ML IVC SCH (22:37)
[2018-04-16 04:55] LABS: Basophils # 0.1 K/mcL (0.0-0.2); Basophils % 0.7 %; Eosinophils # 0.2 K/mcL (0.0-0.6); Eosinophils % 3.4 %; Hematocrit 42.7 % (35.3-44.9); Hemoglobin 14.6 g/dL (11.5-15.4); Immature Granulocytes % 0.6 % (0-4); Lymphocytes # 1.1 K/mcL (0.6-4.6); Lymphocytes % 15.3 %; Mean Corpuscular HGB Conc 34.2 g/dL (31.6-35.5); Mean Corpuscular Hemoglobin 30.6 pg (28.0-33.3); Mean Corpuscular Volume 89.5 fL (83.0-100.0); Mean Platelet Volume 9.9 fL (9.4-12.4); Monocytes # 0.5 K/mcL (0.0-1.3); Monocytes % 7.7 %; Neutrophils # 5.1 K/mcL (1.6-8.9); Platelet Count 248 K/mcL (140-400); Red Blood Count 4.77 M/mcL (3.82-4.97); Red Cell Distribution Width 14.3 % (11.5-14.5); Segmented Neutrophils % 72.3 %
[2018-04-16 05:12] LABS: BUN/Creatinine Ratio 31 (6-26); Blood Urea Nitrogen 14 mg/dL (6-20); Calcium 8.9 mg/dL (8.6-10.3); Carbon Dioxide 25 mEq/L (23-29); Chloride 104 mEq/L (98-107); Creatine Kinase 423 Units/L (30-223); Glucose 143 mg/dL (70-105); Magnesium 1.9 mg/dL (1.6-2.6); Osmolality,Calculated 287 (280-300); Potassium 3.8 mEq/L (3.5-5.1); Sodium 137 mEq/L (136-145); eGFR For Non-African Americans > 60 (> 60)
[2018-04-16] MEDS: *HR* Heparin 5,000 UNIT/ML VIAL SQ SCH ×2 (06:46→17:58)
--- NOTE | 2018-04-16 09:00 | Discharge Summary ---
- NOTES TO OUTPATIENT PROVIDER Notes to Outpatient Provider: Follow-up BMP outpatient to evaluate for resolution of the rhabdomyolysis. Patient experienced several episodes of hypokalemia which are corrected while in the hospital, recommend further outpatient monitoring. 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 Patient's caretakers are her parents were elderly, may require home health services and social work. Orders not resulted at time of discharge: Pending orders 04/11/18 17:58 Culture,Blood [BC] Stat 04/14/18 08:03 Culture,Blood [BC] Stat 04/17/18 04:00 BMP [Basic Metabolic Panel] AM 0400 CBC [Complete Blood Count] [HEME] AM 0400 CK [Creatine Kinase] AM 0400 Magnesium AM 0400 04/18/18 04:00 BMP [Basic Metabolic Panel] AM 0400 CBC [Complete Blood Count] [HEME] AM 0400 CK [Creatine Kinase] AM 0400 Magnesium AM 0400 04/19/18 04:00 BMP [Basic Metabolic Panel] AM 0400 CBC [Complete Blood Count] [HEME] AM 0400 CK [Creatine Kinase] AM 0400 Magnesium AM 0400 04/20/18 04:00 BMP [Basic Metabolic Panel] AM 0400 CBC [Complete Blood Count] [HEME] AM 0400 CK [Creatine Kinase] AM 0400 Magnesium AM 0400 04/21/18 04:00 BMP [Basic Metabolic Panel] AM 0400 CBC [Complete Blood Count] [HEME] AM 0400 CK [Creatine Kinase] AM 0400 Magnesium AM 0400 Date of Encounter: 04/16/18 Time of Encounter: 09:00 - Discharge Diagnosis (1) Rhabdomyolysis Priority: Primary Status: Acute Assessment and Plan: Creatinine kinase increased on admission to 4436, this has steadily decreased with IV hydration and was near normal at 423 prior to discharge. Patient was treated with IV fluids as she was refusing PO fluid intake. 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 Parents are primary caretakers. Mother does not know of any other comorbidities that the patient has. Consulted neurology for patient's altered mental status. Neurology consult does not appreciate an underlying neurological disorder for patient's change in mental status. CT head was obtained and was unremarkable EEG normal (3) Lactic acidosis Status: Resolved Assessment and Plan: Resolved (4) Leucocytosis Status: Resolved Assessment and Plan: Leukocytosis resolved. Patient had one elevated temperature of 100.6. Subsequent temperature readings were normal. Obtained a CT angiogram and ruled out PE. No further readings of leukocytosis Qualifiers: Leukocytosis type: unspecified Qualified Code(s): D72.829 - Elevated white blood cell count, unspecified (5) Elevated troponin Status: Acute Assessment and Plan: Per cardiology, elevated troponin likely secondary to rhabdomyolysis. No cardiac intervention warranted at this time. CTA negative for PE. Echo shows normal ejection fraction of 65-70% with mild left ventricular diastolic dysfunction. (6) Hypokalemia Status: Acute Assessment and Plan: Patient had several low potassium . Replaced while in hospital. stable on discharge Hospital course: Ms. Kim is a 52 year old female with past medical history of Rett syndrome, presented to the hospital with a chief complaint of "not acting right". Patient was nonverbal throughout her stay and history was collected by the patient's parents. Per the family patient had a two-week history of anxious mood and agitation. This appeared to be brought on after the patient underwent a dental surgical procedure that involved anesthesia. Per the father patient has had similar episodes of agitation and changes in mental status following previous surgeries are requiring anesthesia. Family stated that the patient would constantly pace around the house and not sleeping. She also complained of increasing pain in her legs. No other recent illnesses prior to admission. No new medications, and family states the patient is not on any medications and that the patient has not been evaluated by her primary care provider stating that she only goes to a doctor as needed. Parents are her primary caregivers. In the emergency department patient was agitated and received benadryl and haldol. Her creatinine kinase was significantly elevated at 754. This increased to a maximum value of 4436. Patient was started on fluids and her creatinine kinase steadily decreased to 423 on the day of discharge. On admission patient also had an elevated troponin and was evaluated by cardiology who stated the patient small troponin elevation was likely secondary to rhabdomyolysis rather than an underlying acute coronary syndrome. Echo revealed ejection fraction 65- 70%. Patient had a mild elevation in her WBC count, PE ruled out via CTA chest. Leukocytosis resolved, not septic. Neurology was consulted to evaluate the patient for her altered mental status, neurology performed CT and EEG which were normal. Patient remained nonverbal during hospitalization and refused by mouth intake, her rhabdomyolysis treated with IV fluids. Rhabdomyolysis improved, underlying comorbidities likely secondary to Rett syndrome and other undiagnosed conditions. Patient will likely require further outpatient follow-up with specialist as well as primary care provider for continued care. - Time Spent with Patient Total time spent providing and/or coordinating discharge services: - Discharge Medications Home Medications: Meloxicam [Mobic] 7.5 mg PO DAILY 04/11/18 [History] Allergies/Adverse Reactions: Allergy/AdvReac Type Severity Reaction Status Date / Time No Known Allergies Allergy Verified 04/11/18 15:35 Date of admission: 04/12/18 16:20 Primary care physician: PCP NONE Consults: 04/13/18 07:59 Consult to Cardiology [CONS] Routine Comment: Consulting Provider: [facility] Reason for Consult: elevated troponins, possible need for PCI Call Completed: Yes 04/14/18 13:57 Consult to Neurology [CONS] Routine Consulting Provider: Neu[facility] Reason for Consult: William syndrome, altered mental status, rhabdomyolysis. r/o underlying neurological disorder for change in mental status. Call Completed: No 04/15/18 10:29 Consult to Interpret Exam [CONS] Routine Consulting Provider: Rafael Hilliard Consult to Interpret Exam: Interpret EEG Discharging clinician: Jamaal Dey Anticipated date of discharge: 04/16/18 - Constitutional Vitals: Temp Pulse Resp BP Pulse Ox 98.8 F 100 15 159/98 97 04/16/18 06:28 04/16/18 06:28 04/16/18 06:28 04/16/18 06:28 04/16/18 06:28 General appearance: Present: A&O X 0, no acute distress (Patient currently laying in bed, will make multiple sounds, but with no purpose or intention) - Patient Status Disposition: Home, Self-Care Condition: Fair - Discharge Instructions Follow Up With: NONE,PCP [Primary Care Provider] -
--- NOTE | 2018-04-16 11:00 | Internal Med Progress Note ---
<Jamaal Dey N - Last Filed: 04/16/18 11:16> Hospitalist Progress Note - Encounter Date of Encounter: 04/16/18 Time of Encounter: 10:58 - Subjective Interval History: Patient seen and examined at bedside this morning. She remains nonverbal, mother is at bedside. Mother is concerned that the patient continues to refuse PO and she is afraid that she will not ambulate at home. - Exam Vitals: Temp Pulse Resp BP Pulse Ox 98.8 F 100 15 159/98 97 04/16/18 06:28 04/16/18 06:28 04/16/18 06:28 04/16/18 06:28 04/16/18 06:28 Exam: Constitutional: Patient laying in bed, no acute distress. She is awake but non verbal. Does appear to interact to a limited extent with mother by staring at her Cardiovascular: Regular rate and rhythm, normal S1, normal S2. No murmurs Respiratory: Clear to auscultation bilaterally no wheezes. Abdomen: Soft, nontender, no guarding or rigidity. extremities: hand is flexed at the wrist and clenched on the right. Skin: Clean dry intact - Assessment and Plan (1) Rhabdomyolysis Current Visit: Yes Status: Acute Assessment and Plan: Improving. most recent CK was 423. Plan: continue IV hydration with LR 75ml/hr. 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 Plan: arrange for social work consult to address establishing outpatient care and arrange for home health services PT/OT consult placed to evaluate patient's ability to ambulate and perform activities. (3) Lactic acidosis Current Visit: Yes Status: Resolved Assessment and Plan: resolved (4) Leucocytosis Current Visit: Yes Status: Resolved Assessment and Plan: resolved (5) Elevated troponin Current Visit: Yes Status: Acute Assessment and Plan: likely secondary to rhabdomyolisis. No interventions required at this time. (6) Hypokalemia Current Visit: Yes Status: Acute Assessment and Plan: resolved. - Time Spent with Patient Total time spent is greater than 50% in coordination of care (as documented) at patient's floor/unit and/or counseling patient: Internal Medicine: Result - Labs CBC & Chem 7: 04/16/18 04:13 04/16/18 04:13 Labs: Short CBC 04/16/18 Range/Units 04:13 WBC 7.0 (4.3-11.1) K/mcL Hgb 14.6 (11.5-15.4) g/dL Hct 42.7 (35.3-44.9) % Plt Count 248 (140-400) K/mcL Neutrophils # 5.1 (1.6-8.9) K/mcL BMP 04/15/18 04/16/18 13:51 04:13 Sodium 139 137 Potassium 3.6 3.8 Chloride 106 104 Carbon Dioxide 25 25 BUN 16 14 Creatinine 0.49 L 0.45 L Glucose 163 H 143 H Calcium 8.9 8.9 - ABG Interpretation ABG results: PT/INR, D-dimer PT 13.3 Seconds (9.4-12.1) H 04/14/18 05:17 D-Dimer 734 ng/mLFEU (0-500) H 04/14/18 08:03 Consult Discharge Plan - Plan Referrals: NONE,PCP [Primary Care Provider] - <Jayesh Marinelli - Last Filed: 04/16/18 16:48> Hospitalist Progress Note - Encounter Date of Encounter: 04/16/18 - Exam Vitals: Temp Pulse Resp BP Pulse Ox 99.2 F 105 15 161/93 96 04/16/18 16:33 04/16/18 16:33 04/16/18 16:33 04/16/18 16:33 04/16/18 16:33 - Assessment and Plan (1) 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 (2) Lactic acidosis Current Visit: Yes Status: Resolved (3) Rhabdomyolysis Current Visit: Yes Status: Acute (4) Leucocytosis Current Visit: Yes Status: Resolved (5) Elevated troponin Current Visit: Yes Status: Acute (6) Hypokalemia Current Visit: Yes Status: Acute - Time Spent with Patient Total time spent is greater than 50% in coordination of care (as documented) at patient's floor/unit and/or counseling patient: Internal Medicine: Result - Labs CBC & Chem 7: 04/16/18 04:13 04/16/18 04:13 Labs: Short CBC 04/16/18 Range/Units 04:13 WBC 7.0 (4.3-11.1) K/mcL Hgb 14.6 (11.5-15.4) g/dL Hct 42.7 (35.3-44.9) % Plt Count 248 (140-400) K/mcL Neutrophils # 5.1 (1.6-8.9) K/mcL BMP 04/16/18 04:13 Sodium 137 Potassium 3.8 Chloride 104 Carbon Dioxide 25 BUN 14 Creatinine 0.45 L Glucose 143 H Calcium 8.9 - ABG Interpretation ABG results: PT/INR, D-dimer PT 13.3 Seconds (9.4-12.1) H 04/14/18 05:17 D-Dimer 734 ng/mLFEU (0-500) H 04/14/18 08:03 - Attending Attestation I examined this patient and my medical decision-making was reviewed with the Resident Physician on 04/16/18. I agree with the documented findings, disposition and treatment plan as described except to the extent set forth below. Ms Kim is currently admitted for acute rhabdo. She remains moderate to high risk due to potential for worsening clinical status. Ms Kim seems more alert today. No fever or chills. Still not eating much. PT to see today. Exam alert Comfortable Tracks to me coming in room Mucus membranes dry Heart not tachy No wheeze Abd soft I/P 1. Rhabdo - slowly improving 2. Retts syndrome Further diagnoses and plan as above. <Jamaal Dey - Last Filed: 04/16/18 11:16> (1) Rhabdomyolysis Qualifiers: Rhabdomyolysis type: non-traumatic Qualified Code(s): M62.82 - Rhabdomyolysis (4) Leucocytosis Qualifiers: Leukocytosis type: unspecified Qualified Code(s): D72.829 - Elevated white blood cell count, unspecified <Jayesh Marinelli - Last Filed: 04/16/18 16:48> (3) Rhabdomyolysis Qualifiers: Rhabdomyolysis type: non-traumatic Qualified Code(s): M62.82 - Rhabdomyolysis (4) Leucocytosis Qualifiers: Leukocytosis type: unspecified Qualified Code(s): D72.829 - Elevated white blood cell count, unspecified
[2018-04-16] MEDS ORDERED: D5% in Lactated Ringers 1,000 ML IVC SCH ×2 (11:15→12:00)
[2018-04-16] MEDS: D5% in Lactated Ringers 1,000 ML IVC SCH (11:52)
[2018-04-17 03:53] LABS: Basophils # 0.1 K/mcL (0.0-0.2); Basophils % 0.9 %; Eosinophils # 0.5 K/mcL (0.0-0.6); Eosinophils % 7.1 %; Hematocrit 42.6 % (35.3-44.9); Hemoglobin 14.5 g/dL (11.5-15.4); Immature Granulocytes % 1.7 % (0-4); Lymphocytes # 1.2 K/mcL (0.6-4.6); Lymphocytes % 16.8 %; Mean Corpuscular Hemoglobin 30.7 pg (28.0-33.3); Mean Corpuscular Volume 90.1 fL (83.0-100.0); Mean Platelet Volume 10.1 fL (9.4-12.4); Monocytes # 0.6 K/mcL (0.0-1.3); Neutrophils # 4.5 K/mcL (1.6-8.9); Platelet Count 238 K/mcL (140-400); Red Blood Count 4.73 M/mcL (3.82-4.97); Red Cell Distribution Width 14.6 % (11.5-14.5); Segmented Neutrophils % 64.5 %
[2018-04-17 04:13] LABS: BUN/Creatinine Ratio 26 (6-26); Blood Urea Nitrogen 12 mg/dL (6-20); Calcium 9.1 mg/dL (8.6-10.3); Carbon Dioxide 25 mEq/L (23-29); Chloride 104 mEq/L (98-107); Creatine Kinase 240 Units/L (30-223); Glucose 122 mg/dL (70-105); Magnesium 1.9 mg/dL (1.6-2.6); Osmolality,Calculated 287 (280-300); Potassium 3.8 mEq/L (3.5-5.1); Sodium 138 mEq/L (136-145); eGFR For Non-African Americans > 60 (> 60)
[2018-04-17] MEDS: *HR* Heparin 5,000 UNIT/ML VIAL SQ SCH (05:51)
--- NOTE | 2018-04-17 09:28 | Discharge Summary ---
- NOTES TO OUTPATIENT PROVIDER Notes to Outpatient Provider: Follow up on patient's CK for complete resolution. Assess health care needs and support required to properly care for her disability. Refer to Rett Syndrome specialist for continued monitoring and care. Orders not resulted at time of discharge: Pending orders 04/14/18 08:03 Culture,Blood [BC] Stat 04/18/18 04:00 BMP [Basic Metabolic Panel] AM 0400 CBC [Complete Blood Count] [HEME] AM 0400 CK [Creatine Kinase] AM 0400 Magnesium AM 0400 04/19/18 04:00 BMP [Basic Metabolic Panel] AM 0400 CBC [Complete Blood Count] [HEME] AM 0400 CK [Creatine Kinase] AM 0400 Magnesium AM 0400 04/20/18 04:00 BMP [Basic Metabolic Panel] AM 0400 CBC [Complete Blood Count] [HEME] AM 0400 CK [Creatine Kinase] AM 0400 Magnesium AM 0400 04/21/18 04:00 BMP [Basic Metabolic Panel] AM 0400 CBC [Complete Blood Count] [HEME] AM 0400 CK [Creatine Kinase] AM 0400 Magnesium AM 0400 Date of Encounter: 04/17/18 Time of Encounter: 09:28 - Discharge Diagnosis (1) Rhabdomyolysis Priority: Primary Status: Acute Assessment and Plan: Improving. most recent CK was near normal at 240. Plan: Continue hydration Qualifiers: Rhabdomyolysis type: non-traumatic Qualified Code(s): M62.82 - Rhabdomyolysis (2) Rett syndrome Priority: Secondary Status: Chronic Assessment and Plan: Patient will require outpatient follow up with PCP to establish care with Rett specialist. Plan: arranged for social work consult to address establishing outpatient care and arrange for home health services PT/OT recommended patient be discharged to extended care facility or halfway facility (3) Lactic acidosis Priority: Secondary Status: Resolved Assessment and Plan: resolved (4) Leucocytosis Priority: Secondary Status: Resolved Assessment and Plan: resolved Qualifiers: Leukocytosis type: unspecified Qualified Code(s): D72.829 - Elevated white blood cell count, unspecified (5) Elevated troponin Priority: Secondary Status: Acute Assessment and Plan: likely secondary to rhabdomyolisis. No interventions required at this time. (6) Hypokalemia Priority: Secondary Status: Acute Assessment and Plan: resolved. Hospital course: Ms. 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 PAtient had a dental procedure requiring anesthesia and agitated for several days at home following the procedure. She has reportedly had similar episodes after receiving anesthetics in the past. Parents state that she would pace around the house constantly and not sleep. She also complained of pain in her legs. In the emergency department patient's CK was found to be elevated with the highest reading while in the hospital of 5243. She was also reportedly agitated in the emergency department and received benadryl and haldol. While in the hospital she received aggressive IV hydration and her CK steadily decreased to near normal levels on day of discharge. Patient refused oral intake during her time in the hospital, mother stated that it was possibly due to change in surroundings. The day prior to discharge the patient's mother was able to feed the patient some of her food and chocolate milk. The patient has significant disability secondary to her Rett syndrome. She is nonverbal and did not interact with examinations during her hospitalization. Patient's mother stated that she was acting differently, neurology consultation was acquired but no acute neurological deficit was found as patient had a normal CT and EEG. During the last two days the patient did interact with her mother slightly by looking at her and allowing her to feed her. Patient's CK elevation was treated in the hospital, however there was concern for discharging the patient to home due to her requirement for high level of care and her aging parents are her primary caregivers. PT/OT consult were placed and recommended that the patient be discharged to a SNF/ECF. Social consultation was placed to discuss with family for shared decision making for discharge planning. - Time Spent with Patient Total time spent providing and/or coordinating discharge services: - Discharge Medications Home Medications: Meloxicam [Mobic] 7.5 mg PO DAILY 04/11/18 [History] Allergies/Adverse Reactions: Allergy/AdvReac Type Severity Reaction Status Date / Time No Known Allergies Allergy Verified 04/11/18 15:35 Date of admission: 04/12/18 16:20 Primary care physician: PCP NONE Consults: 04/13/18 07:59 Consult to Cardiology [CONS] Routine Comment: Consulting Provider: [facility] Reason for Consult: elevated troponins, possible need for PCI Call Completed: Yes 04/14/18 13:57 Consult to Neurology [CONS] Routine Consulting Provider: [facility] Reason for Consult: William syndrome, altered mental status, rhabdomyolysis. r/o underlying neurological disorder for change in mental status. Call Completed: No 04/15/18 10:29 Consult to Interpret Exam [CONS] Routine Consulting Provider: Rafael Hilliard Consult to Interpret Exam: Interpret EEG 04/16/18 10:51 Consult to Physical Therapy [CONS] Routine Comment: Evaluate, develop and implement POC Reason for Consult: Rett syndrome, evaluate safe to DC home Does patient have active BEDREST order?: No Is patient medically & hemodynamically stable?: Yes 04/16/18 10:52 Consult to Occupational Therapy [CONS] Routine Comment: Evaluate, develop and implement POC Reason for Consult: evaluate safe to DC home Does patient have active BEDREST order?: No Is patient medically & hemodynamically stable?: Yes 04/16/18 10:53 Consult to Outreach Manager [CONS] Routine Reason for SW Consult: Patient with Rett syndrome, parents are primar care givers and are elderly. Does not have a PCP or Retts specialist, will need help setting up with PCP and possibly obtaining home health services. Discharging clinician: Jamaal Dey Anticipated date of discharge: 04/17/18 - Constitutional Vitals: Temp Pulse Resp BP Pulse Ox 97.7 F 85 15 141/93 97 04/17/18 06:42 04/17/18 06:42 04/17/18 06:42 04/17/18 06:42 04/17/18 06:42 General appearance: Present: A&O X 0, no acute distress (Patient currently laying in bed, will make multiple sounds, but with no purpose or intention) Exam: Constitutional: Patient laying in bed, no acute distress. She is awake but non verbal. Cardiovascular: Regular rate and rhythm, normal S1, normal S2. No murmurs Respiratory: Clear to auscultation bilaterally no wheezes. Abdomen: Soft, nontender, no guarding or rigidity. extremities: hand is flexed at the wrist and clenched on the right. Skin: Clean dry intact - Patient Status Disposition: Home, Self-Care Condition: Fair - Discharge Instructions Follow Up With: NONE,PCP [Primary Care Provider] -
--- NOTE | 2018-04-17 10:28 | Internal Med Progress Note ---
<NaacyndiJamaal N - Last Filed: 04/17/18 13:10> Hospitalist Progress Note - Encounter Date of Encounter: 04/17/18 Time of Encounter: 10:26 - Subjective Interval History: Patient seen and examined at bedside this morning. She remains nonverbal. She was able to tolerate some food and chocolate milk the night before with assistance by her mother. PT/OT recommend SNF/ECF. working with social work to establish placement. PT evaluated patient during examination and patient was able to stand with assistance and transfer to chair. Parents both agree that the patient requires care at a assisted facility and shared decision making was made to work to obtain a position at a local assisted facility. - Exam Vitals: Temp Pulse Resp BP Pulse Ox 97.7 F 85 15 141/93 97 04/17/18 06:42 04/17/18 06:42 04/17/18 06:42 04/17/18 06:42 04/17/18 06:42 Exam: Constitutional: nonverbal, no acute distress, does track individuals with her eyes Cardiovascular: regular rate and rhythm no murmurs Respiratory: clear to auscultation bilaterally Abdomen: soft, nontender, positive bowel sounds musculoskeletal: patient able to stand with assistance and transfer to chair - Assessment and Plan (1) Rhabdomyolysis Status: Acute Assessment and Plan: Improving, near normal today. Patient now tolerating PO. Cleared for discharge to SNF once placement is confirmed. (2) Rett syndrome Status: Chronic Assessment and Plan: significant disability from patient's chronic disease process. Recommended place ment for patient at assisted facility. Family agrees. Also stressed importance of obtaining outpatient follow up with PCP and Rett specialist. Working with social work currently to obtain placement for the patient at a assisted facility. Medically cleared for discharge to SNF. (3) Lactic acidosis Status: Resolved Assessment and Plan: resolved (4) Leucocytosis Status: Resolved Assessment and Plan: resolved (5) Elevated troponin Status: Acute Assessment and Plan: likely secondary to rhabdomyolysis, no intervention indicated at this time (6) Hypokalemia Status: Acute Assessment and Plan: resolved - Time Spent with Patient Total time spent is greater than 50% in coordination of care (as documented) at patient's floor/unit and/or counseling patient: Internal Medicine: Result - Labs CBC & Chem 7: 04/17/18 03:28 04/17/18 03:28 Labs: Short CBC 04/17/18 Range/Units 03:28 WBC 6.9 (4.3-11.1) K/mcL Hgb 14.5 (11.5-15.4) g/dL Hct 42.6 (35.3-44.9) % Plt Count 238 (140-400) K/mcL Neutrophils # 4.5 (1.6-8.9) K/mcL BMP 04/17/18 03:28 Sodium 138 Potassium 3.8 Chloride 104 Carbon Dioxide 25 BUN 12 Creatinine 0.46 L Glucose 122 H Calcium 9.1 - ABG Interpretation ABG results: PT/INR, D-dimer PT 13.3 Seconds (9.4-12.1) H 04/14/18 05:17 D-Dimer 734 ng/mLFEU (0-500) H 04/14/18 08:03 Consult Discharge Plan - Plan Instructions: Dehydration (DC) Additional Instructions: Return to the emergency department if patient does not continue to tolerate food or PO fluids. return for any further changes in mental status. Return to the ED for any fevers, chest pain, SOB or trouble breathing, nausea, vomiting, diarrhea, or any other new or concerning symptoms. Establish with PCP, a referral for [facility] has been added if you would like to be established there. Referrals: [facility] [Outside] <Jayesh Marinelli - Last Filed: 04/18/18 12:31> Hospitalist Progress Note - Encounter Date of Encounter: 04/17/18 - Exam Vitals: Temp Pulse Resp BP Pulse Ox 99.1 F 108 16 113/99 95 04/17/18 10:38 04/17/18 10:38 04/17/18 10:38 04/17/18 10:38 04/17/18 10:38 - Assessment and Plan (1) Rett syndrome Status: Chronic (2) Lactic acidosis Status: Resolved (3) Rhabdomyolysis Status: Resolved (4) Leucocytosis Status: Resolved (5) Elevated troponin Status: Resolved (6) Hypokalemia Status: Resolved - Time Spent with Patient Total time spent is greater than 50% in coordination of care (as documented) at patient's floor/unit and/or counseling patient: Internal Medicine: Result - Labs CBC & Chem 7: 04/17/18 03:28 04/17/18 03:28 - ABG Interpretation ABG results: PT/INR, D-dimer PT 13.3 Seconds (9.4-12.1) H 04/14/18 05:17 D-Dimer 734 ng/mLFEU (0-500) H 04/14/18 08:03 - Attending Attestation Please see discharge summary of this date. <Jamaal Dey - Last Filed: 04/17/18 13:10> (1) Rhabdomyolysis Qualifiers: Rhabdomyolysis type: non-traumatic Qualified Code(s): M62.82 - Rhabdomyolysis (4) Leucocytosis Qualifiers: Leukocytosis type: unspecified Qualified Code(s): D72.829 - Elevated white blood cell count, unspecified <Jayesh Marinelli - Last Filed: 04/18/18 12:31> (3) Rhabdomyolysis Qualifiers: Rhabdomyolysis type: non-traumatic Qualified Code(s): M62.82 - Rhabdomyolysis (4) Leucocytosis Qualifiers: Leukocytosis type: unspecified Qualified Code(s): D72.829 - Elevated white blood cell count, unspecified
[2018-04-17 10:41] VITALS: BP 113/99
--- NOTE | 2018-04-17 14:46 | Discharge Summary ---
<Jamaal Dey N - Last Filed: 04/17/18 14:44> - NOTES TO OUTPATIENT PROVIDER Notes to Outpatient Provider: follow up on patient's labs, including evaluation of resolution of elevated CK. Patient will also require referral for Rett specialist to manage her disability. Follow up on patient's ability to tolerate by mouth food and fluid intake. 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 PAtient had a dental procedure requiring anesthesia and agitated for several days at home following the procedure. She has reportedly had similar episodes after receiving anesthetics in the past. Parents mother states that she would pace around the house constantly and not sleep. She also complained of pain in her legs. In the emergency department patient's CK was found to be elevated with the highest reading while in the hospital of 5243. She was also reportedly agitated in the emergency department and received benadryl and haldol. While in the hospital she received aggressive IV hydration and her CK steadily decreased to near normal levels on day of discharge. Patient refused oral intake during her time in the hospital, mother stated that it was possibly due to change in surroundings. The day prior to discharge the patient's mother was able to feed the patient some of her food and chocolate milk. The patient has significant disability secondary to her Rett syndrome. She is nonverbal and did not interact with examinations during her hospitalization. Patient's mother stated that she was acting differently, neurology consultation was acquired but no acute neurological deficit was found as patient had a normal CT and EEG. During the last two days the patient did interact with her mother slightly by looking at her and allowing her to feed her. Patient's CK elevation was treated in the hospital, however there was concern for discharging the patient to home due to her requirement for high level of care and her aging parents are her primary caregivers. PT/OT consult were placed and recommended that the patient be discharged to a SNF/ECF. Social consultation was placed to discuss with family for shared decision making for discharge planning. [facility] accepted the patient. Patient is progressing near baseline and will be discharged in stable condition. - Time Spent with Patient Total time spent providing and/or coordinating discharge services: - Discharge Medications Home Medications: RX: Meloxicam [Mobic] 7.5 mg PO DAILY 04/11/18 [History] Allergies/Adverse Reactions: Allergy/AdvReac Type Severity Reaction Status Date / Time No Known Allergies Allergy Verified 04/11/18 15:35 Date of admission: 04/12/18 16:20 Primary care physician: PCP NONE Consults: 04/13/18 07:59 Consult to Cardiology [CONS] Routine Comment: Consulting Provider: [facility] Reason for Consult: elevated troponins, possible need for PCI Call Completed: Yes 04/14/18 13:57 Consult to Neurology [CONS] Routine Consulting Provider: [facility] Reason for Consult: William syndrome, altered mental status, rhabdomyolysis. r/o underlying neurological disorder for change in mental status. Call Completed: No 04/15/18 10:29 Consult to Interpret Exam [CONS] Routine Consulting Provider: Rafael Hilliard Consult to Interpret Exam: Interpret EEG 04/16/18 10:51 Consult to Physical Therapy [CONS] Routine Comment: Evaluate, develop and implement POC Reason for Consult: Rett syndrome, evaluate safe to DC home Does patient have active BEDREST order?: No Is patient medically & hemodynamically stable?: Yes 04/16/18 10:52 Consult to Occupational Therapy [CONS] Routine Comment: Evaluate, develop and implement POC Reason for Consult: evaluate safe to DC home Does patient have active BEDREST order?: No Is patient medically & hemodynamically stable?: Yes 04/16/18 10:53 Consult to Order Taker [CONS] Routine Reason for SW Consult: Patient with Rett syndrome, parents are primar care givers and are elderly. Does not have a PCP or Retts specialist, will need help setting up with PCP and possibly obtaining home health services. Discharging clinician: Jamaal Dey Anticipated date of discharge: 04/17/18 - Constitutional Vitals: Temp Pulse Resp BP Pulse Ox 99.1 F 108 16 113/99 95 04/17/18 10:38 04/17/18 10:38 04/17/18 10:38 04/17/18 10:38 04/17/18 10:38 General appearance: Present: A&O X 0, no acute distress (Patient currently laying in bed, will make multiple sounds, but with no purpose or intention) Exam: Constitutional: nonverbal Chest: symmetrical chest wall rise, no deformity Cardiovascular: RRR, no murmurs Respiratory: CTA bilaterally Abdomen: soft, positive bowel sounds Extremities: clenched hand RUE. patient able to stand with assistance Skin: clean dry intact. - Patient Status Disposition: Transfer Intermediate Care Fac Condition: Fair Overall status at discharge: patient is progressing back to baseline - Discharge Instructions Instructions: Dehydration (DC) Follow Up With: [facility] [Outside] Additional Instructions: Return to the emergency department if patient does not continue to tolerate food or PO fluids. return for any further changes in mental status. Return to the ED for any fevers, chest pain, SOB or trouble breathing, nausea, vomiting, diarrhea, or any other new or concerning symptoms. Establish with PCP, a referral for [facility] has been added if you would like to be established there. - Diet and Activity Activity: as per physical therapy Diet: other (soft diet with assistance for feeding) <Jayesh Marinelli - Last Filed: 04/17/18 19:26> Orders not resulted at time of discharge: Pending orders 04/14/18 08:03 Culture,Blood [BC] Stat Date of Encounter: 04/17/18 - Discharge Diagnosis (1) Rett syndrome Status: Chronic (2) Lactic acidosis Status: Resolved (3) Rhabdomyolysis Status: Resolved Qualifiers: Rhabdomyolysis type: non-traumatic Qualified Code(s): M62.82 - Rhabdomyolysis (4) Leucocytosis Status: Resolved Qualifiers: Leukocytosis type: unspecified Qualified Code(s): D72.829 - Elevated white blood cell count, unspecified (5) Elevated troponin Status: Resolved (6) Hypokalemia Status: Resolved Hospital course: Ms. Kim is a 52 year old female - Time Spent with Patient Total time spent providing and/or coordinating discharge services: 38min Date of admission: 04/12/18 16:20 Primary care physician: PCP NONE Consults: 04/13/18 07:59 Consult to Cardiology [CONS] Routine Comment: Consulting Provider: [facility] Reason for Consult: elevated troponins, possible need for PCI Call Completed: Yes 04/14/18 13:57 Consult to Neurology [CONS] Routine Consulting Provider: [facility] Reason for Consult: William syndrome, altered mental status, rhabdomyolysis. r/o underlying neurological disorder for change in mental status. Call Completed: No 04/15/18 10:29 Consult to Interpret Exam [CONS] Routine Consulting Provider: Rafael Hilliard Consult to Interpret Exam: Interpret EEG 04/16/18 10:51 Consult to Physical Therapy [CONS] Routine Comment: Evaluate, develop and implement POC Reason for Consult: Rett syndrome, evaluate safe to DC home Does patient have active BEDREST order?: No Is patient medically & hemodynamically stable?: Yes 04/16/18 10:52 Consult to Occupational Therapy [CONS] Routine Comment: Evaluate, develop and implement POC Reason for Consult: evaluate safe to DC home Does patient have active BEDREST order?: No Is patient medically & hemodynamically stable?: Yes 04/16/18 10:53 Consult to Order Taker [CONS] Routine Reason for SW Consult: Patient with Rett syndrome, parents are primar care givers and are elderly. Does not have a PCP or Retts specialist, will need help setting up with PCP and possibly obtaining home health services. - Constitutional Vitals: Temp Pulse Resp BP Pulse Ox 99.1 F 108 16 113/99 95 04/17/18 10:38 04/17/18 10:38 04/17/18 10:38 04/17/18 10:38 04/17/18 10:38 - Attending Attestation I examined this patient and my medical decision-making was reviewed with the Resident Physician on 04/17/18. I agree with the documented findings, disposition and treatment plan as described except to the extent set forth below. Ms Kim has been admitted for acute rhabdo. Her CPK has improved and she is eating better. She is afebrile and ready for discharge. She is to go to SNF. Exam alert Comfortable Mucus membranes dry Heart not tachy Lungs no wheeze Abd nontender Plan D/C to SNF today.
--- NOTE | 2018-04-17 15:16 | Physician Discharge Referral ---
ExtendedCare Referral Info Transfer To: [facility] Provider in Charge: pcp Provider in Charge after Transfer: PCP Institutional Level of Care: Skilled - Diagnosis (1) Rhabdomyolysis Priority: Secondary Status: Resolved (2) Rett syndrome Priority: Primary Status: Chronic (3) Lactic acidosis Priority: Secondary Status: Resolved (4) Leucocytosis Priority: Secondary Status: Resolved (5) Elevated troponin Priority: Secondary Status: Resolved (6) Hypokalemia Priority: Secondary Status: Resolved Prognosis: Fair Aware of Diagnosis: Family Aware of Prognosis: Family - Transfer Medications Home Medications: Meloxicam [Mobic] 7.5 mg PO DAILY 04/11/18 [History] Allergies/Adverse Reactions: Allergy/AdvReac Type Severity Reaction Status Date / Time No Known Allergies Allergy Verified 04/11/18 15:35 - Respiratory Orders None Smoking Cessation: Smoking cessation has been advised. For more information, call the [employer] Tobacco Quit Line at 6-907-TPWZ-NOW. - Ancillary Orders May use pressure relief devices daily prn, May consult with Dentist, Hide And Skin Processing Worker, [employer] - Advance Directives Code Status: Full Code - Mobility Orders Ambulate (with assist) - Rehabiliation Orders Rehab Potential: Fair Rehab Orders: ROM Exercises, Evaluation for Physical Therapy, Evaluation for Occupational Therapy, Evaluation for Speech Therapy - Treatments Skin tear care topically daily PRN per policy, May check for fecal impaction rectally daily PRN, Fleet enema rectally every other day PRN cleansing purposes - Diet Orders Mechanical Soft (with assistance) CERTIFICATION: I certify that the transfer of the above named patient to an Extended Care Facility is necessary for the continuing treatment of the diagnosis listed. The above information is true and accurate reflection of patient's current condition. Confidential - Redisclosure prohibited without a patient's written consent.
== END 2018-04-17 17:35 | DRG 558 ==
LOC: 2NENU 14:35 → EMEROOARM 14:35 → SUATTDRO 17:55 → 2NENU 20:27 → SUATTDRO 04-12 16:20
PROVIDERS: ADMIT Internal Medicine; ATTEND Internal Medicine